=== PATIENT | male | born 1965 | race Caucasian/White ===

== ENCOUNTER 2024-09-29 18:17 | Inpatient (IN) ==
[2024-09-29 19:03] LABS: Basophils # (auto) 0.04 K/uL (0.00-0.20); Basophils % (auto) 0.6 %; Eosinophils # (auto) 0.16 K/uL (0.00-0.50); Eosinophils % (auto) 2.3 %; Hematocrit (blood only) 40.9 % (42.0-52.0); Immature Granulocytes # (auto) 0.02 K/uL (0.01-0.20); Immature Granulocytes % (auto) 0.3 %; Lymphocytes # (auto) 1.85 K/uL (1.20-3.40); Lymphocytes % (auto) 26.1 %; Mean Corpuscular Hemoglobin 29.5 pg (25.0-34.0); Mean Corpuscular Hgb Conc 34.2 g/dL (32.0-36.0); Mean Corpuscular Volume 86.3 fL (80.0-100.0); Mean Platelet Volume 9.3 fL (9.4-12.4); Monocytes # (auto) 0.51 K/uL (0.11-0.59); Monocytes % (auto) 7.2 %; Neutrophils # (auto) 4.51 K/uL (1.40-6.50); Neutrophils % (auto) 63.5 %; Platelet Count 260 K/uL (130-400); RDW Coefficient of Variation 12.6 % (11.5-14.5); RDW Standard Deviation 39.6 fL (36.4-46.3); Red Blood Count 4.74 M/uL (4.70-6.10); White Blood Count 7.09 K/ul (4.8-10.8)
[2024-09-29 19:21] LABS: Albumin Globulin Ratio 1.6 (0.9-2); Albumin Level 4.3 gm/dl (3.4-5.0); BUN Creatinine Ratio 18.2 (10-20); Bilirubin,Total 0.7 mg/dl (0.2-1.0); Calcium 9.3 mg/dl (8.6-10.3); Creatinine Clr Calc Pharmacy 121.9 ml/min; Globulin 2.7 gm/dl (2.5-4.0); Potassium 3.9 mmol/L (3.5-5.1)
[2024-09-29 19:28] LABS: Troponin I High Sensitivity 3.6 pg/ml (0-20)
[2024-09-29 19:34] LABS: Partial Thromboplastin Ratio 1.1; Partial Thromboplastin Time 29 Seconds (21-31); Prothrombin Time 10.7 Seconds (9.0-12.0)
--- NOTE | 2024-09-29 20:48 | XRay Report ---
Exam(s): XR CXR 1 VIEW EXAM: XR Chest, 1 View CLINICAL HISTORY: Reason for exam: Chest pain, nonspecific. TECHNIQUE: Frontal view of the chest. COMPARISON: CT scan from September 28, 2024 FINDINGS: Lungs: prominent interstitial markings centrally suggesting mild bronchitis. There is a trace amount of subsegmental atelectasis in the left lung base. The lungs are otherwise clear. Pleural space: Unremarkable. No pneumothorax. Heart: Unremarkable. No cardiomegaly. Mediastinum: Unremarkable. Normal mediastinal contour. Bones/joints: Unremarkable. No acute fracture. Upper abdomen: There is no pneumoperitoneum under the diaphragm. IMPRESSION: prominent interstitial markings centrally suggesting mild bronchitis. There is a trace amount of subsegmental atelectasis in the left lung base. The lungs are otherwise clear. Electronically signed by: Cuate Man MD 09/29/24 20:47 PM
--- NOTE | 2024-09-29 20:51 | Emergency Department Note ---
Impression & Plan Headache, Hypertension, DVT (deep venous thrombosis), Carotid artery thrombosis ED Provider Note NAME: GOVIND RICHMOND AGE: 59 SEX: M : 1965 ARRIVES VIA: Walk-In INFORMANT: [Patient] ED PROVIDER(S): [Robin Bartlett MD] CHIEF COMPLAINT: Headache HISTORY OF PRESENT ILLNESS: The patient is a 59-year-old male who states that he was recently, yesterday, diagnosed with a DVT in his right lower extremity, he was started on Eliquis. In addition, he has a subacute clot in the artery of the left neck--the left carotid bulb. This was also diagnosed yesterday. The patient was seen by his doctor's office and referred back to the ER for further workup and potential further imaging. The patient states that this morning, he woke up with a headache and some neck pain. The headache was primarily on the left and the neck pain was primarily on the left. He is short of breath but this is baseline. He has not had chest pain or abdominal pain or vomiting. He did notice that his right lower extremity was swollen, this is the same side they found the DVT. The patient states that in addition, his blood pressure has been high despite his typical BP meds. PMHx/PSHx/Social Hx: See Below PHYSICAL EXAM: GENERAL: Patient is in no acute distress. HEENT: No acute trauma, normocephalic atraumatic, mucous membranes moist, no nasal congestion. NECK: No stridor, no adenopathy, no meningismus, trachea is midline. LUNGS: Clear to auscultation bilaterally, no wheeze, no rhonchi, breath sounds equal. HEART: Without murmurs gallops or rubs, regular rate and rhythm. ABDOMEN: Soft, nontender, no peritonitis. EXTREMITIES: No cyanosis, full range of motion of all the joints without pain or difficulty. There is edema of the right lower extremity when compared to the left. NEUROLOGIC: Oriented x 3, no acute motor or sensory deficits, no focal weakness. SKIN: No jaundice, no diaphoresis. DIFFERENTIAL DIAGNOSIS: Uncontrolled hypertension, DVT, carotid thrombosis, intracranial bleeding, failed outpatient management, among others. EMERGENCY DEPARTMENT PROCEDURES: MEDICAL DECISION MAKING: There is no leukocytosis or concerning anemia. There is a normal platelet count. No coagulopathy. No renal failure or significant electrolyte abnormality. No concerning liver enzyme elevation. The patient appears to be in a euthyroid state. ECG shows a sinus bradycardia, no obvious ischemia. Cardiac enzyme testing x 1 is not consistent with acute cardiac injury. Respiratory bio fire did return positive for a type of coronavirus. Chest x-ray did not show pneumonia or CHF. Brain CT showed no acute bleed or mass effect. On exam, there were no focal neurologic findings. The patient was somewhat hypertensive. The patient received IV Zofran for nausea, IV hydralazine for hypertension. He was given IV Tylenol for his headache. The patient presents with a headache, hypertension. He was just found to have a left carotid thrombus and a right DVT. Given the circumstances, given his findings, I do think a hospital stay is warranted. I spoke with the patient and case management, the on-call hospitalist was consulted. Prior/Outside records/notes reviewed: Previous ED visit note describing his presentation, his findings and the outpatient plan. ECG per my interpretation: Indication was hypertension. The ECG shows a sinus rhythm with a rate of 64. There is LVH present. There is no acute ST elevation, no PVCs. The QTc is 379. Repeat ECG per my interpretation: Indication was chest pain. The ECG shows a sinus bradycardia with a rate of 58. There is LVH. No acute ST elevation, no PVCs. The QTc is 390. Continuous Cardiac Monitoring per my interpretation: An order was placed for continuous cardiac monitoring. The monitor shows a rate of 75 with normal sinus rhythm. Imaging/x-ray results per my interpretation: Chest x-ray does not show CHF or pneumonia. Chronic Medical/Social conditions affecting care: Eliquis use. Care/Management discussed with: Case management, the on-call hospitalist. Level of care consideration(s): After review of the information above and other included data: --I believe the patient requires escalation of care to admission DISPOSITION: Admission Past Med/Surg History Problem List (Updated 09/30/24 @ 12:54 by Robin Bartlett MD) Carotid artery thrombosis (Acute) DVT (deep venous thrombosis) (Acute) Hypertension (Acute) Headache (Acute) Chest pain Carotid artery thrombosis (Acute) DVT (deep venous thrombosis) (Acute) Deep vein thrombosis, lower right extremity Diabetes Left inguinal hernia Recurrent right inguinal hernia Inguinal hernia recurrent bilateral Statin intolerance Hypercholesterolemia Statin medication declined by patient Temporomandibular joint disorder GERD (gastroesophageal reflux disease) Esophageal stricture S/P EGD with dilitation Diabetes mellitus, type 2 Asthma DOES NOT USE INHALER (WAS PRESCRIBED ONE IN THE PAST) History of cardiac arrest self reported cardiac arrest with wrist surgery after reversal agents given for anesthesia. Medical History Hypertension Surgical History S/P hernia surgery (2019) [facility] repair Dr. Guzman Family history of reaction to anesthesia FATHER-INCREASED DEMENTIA History of anesthesia reaction Patient reports "cardiac arrest" with wrist surgery done (per his understanding) with general anesthesia. Had bruises on his chest post-op and was told "they had to use the paddles." He recalls signing paperwork because of these complications. He was told he arrested "when they reversed the anesthesia" to wake him back up. H/O awareness with sedation procedures. History of open reduction and internal fixation (ORIF) procedure RT WRIST History of esophagogastroduodenoscopy (EGD) History of tooth extraction History of endoscopic sinus surgery Family History Mother Family history of diabetes mellitus Grandfather (Maternal) Stroke Grandfather (Paternal) Stroke Father Hypertension Denies family history of Ovarian cancer Prostate cancer Myocardial infarction Breast cancer Colorectal cancer Cancer Social History Smoking Status: Never smoker Tobacco Type: Cigarettes Age Started Using Tobacco: 8; Age Quit Using Tobacco: 45; packs per day: 0.25; Second Hand Exposure: No; Do You Dip or Chew Tobacco: No; Hx Alcohol Use: No Hx Substance Use: No Preferred Language: German Communication Ability: Effective Visual Impairment: Limited Hearing Ability: Normal Licensing Coordinator Required: No Beliefs That Will Affect Care: None marital status: Current Living Situation: Spouse current occupational status: employed 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 How many Children do You have: 2 How many Children do You have Comment: 2 children- 2 steps Feels Safe at Home: Yes Childhood Exposure to Second-Hand Smoke: Yes (father) Diet: regular caffeine: Yes during the past year weight has: remained stable Dental Care, Regularly: Yes Physical Activity Frequency: Does not Exercise Seatbelt Use: always Sunscreen Use: No Assistive Devices: Glasses Allergies Allergies Allergy/AdvReac Type Severity Reaction Status Date / Time oxycodone [From Percocet] Allergy Intermediate ITCHING Verified 09/29/24 14:38 Home Meds Previous Rx's Medication Instructions Recorded triamcinolone acetonide 0.1 % 1 applic topical BID PRN itching 12/11/22 topical cream #80 grams blood sugar diagnostic #50 ea 12/30/23 glimepiride 4 mg tablet 4 mg PO QAM #90 tabs 12/30/23 lisinopril 10 mg tablet 10 mg PO QAM #90 tabs 12/30/23 metformin 1,000 mg tablet 500 mg (1/2 x 1,000 mg) PO BID #90 04/17/24 tabs sildenafil 50 mg tablet 50 mg PO DAILY PRN sexual activity 06/23/24 #14 tabs omeprazole 40 mg capsule,delayed 40 mg PO DAILY #90 caps 07/17/24 release semaglutide 14 mg tablet 14 mg PO DAILY 90 days #90 tabs 08/25/24 albuterol sulfate 90 mcg/actuation 2 puff inhalation Q6H PRN 09/28/24 aerosol inhaler shortness of breath or wheezing #18 grams doxycycline hyclate 100 mg tablet 100 mg PO BID 7 days #14 tabs 09/28/24 apixaban 5 mg tablet (Eliquis) 5 mg PO BID #60 tabs 09/29/24 empagliflozin 25 mg tablet 25 mg PO DAILY #90 tabs 09/29/24 ezetimibe 10 mg tablet 10 mg PO DAILY #90 tabs 09/29/24 Results & Data (ED) Vital Signs Vital Signs - 24 hr 09/29/24 18:29 09/29/24 20:15 09/29/24 20:16 Temperature 36.0 C L Temperature Source Temporal Artery Scan Pulse Rate 65 75 Pulse Rate [Apical] 66 Respiratory Rate 17 20 Respiratory Effort / Characteristics Respiratory Depth Blood Pressure 195/104 H Blood Pressure [Right Arm] 171/101 H Blood Pressure Mean 134 Blood Pressure Mean [Right Arm] 124 Pulse Oximetry 97 98 Oxygen Delivery Method Room Air Room Air Sepsis Recent Fever Within 48 Hours No Sepsis New/Unexplained Change in Mental Status N/A Sepsis Action Taken by Nursing No Action Required 09/29/24 20:56 09/29/24 21:06 09/29/24 21:39 Temperature Temperature Source Pulse Rate Pulse Rate [Apical] 58 L 58 L 64 Respiratory Rate 16 14 16 Respiratory Effort / Characteristics Non-Labored Spontaneous Non-Labored Spontaneous Respiratory Depth Normal Normal Blood Pressure Blood Pressure [Right Arm] 172/104 H 159/92 H 150/89 H Blood Pressure Mean Blood Pressure Mean [Right Arm] 126 114 109 Pulse Oximetry 96 97 96 Oxygen Delivery Method Room Air Room Air Room Air Sepsis Recent Fever Within 48 Hours Sepsis New/Unexplained Change in Mental Status Sepsis Action Taken by Nursing 09/29/24 22:15 Temperature Temperature Source Pulse Rate Pulse Rate [Apical] 68 Respiratory Rate 20 Respiratory Effort / Characteristics Non-Labored Spontaneous Respiratory Depth Normal Blood Pressure Blood Pressure [Right Arm] 151/85 H Blood Pressure Mean Blood Pressure Mean [Right Arm] 107 Pulse Oximetry 98 Oxygen Delivery Method Room Air Sepsis Recent Fever Within 48 Hours Sepsis New/Unexplained Change in Mental Status Sepsis Action Taken by Usp Medications Current Medication List: was personally reviewed by me Laboratory Data Attestation: I reviewed the patient's lab results. 09/29/24 18:51 09/30/24 07:29 Lab Results 09/29/24 Range/Units 18:51 WBC 7.09 (4.8-10.8) K/ul RBC 4.74 (4.70-6.10) M/uL Hgb 14.0 (14.0-18.0) g/dl Hct 40.9 L (42.0-52.0) % MCV 86.3 (80.0-100.0) fL MCH 29.5 (25.0-34.0) pg MCHC 34.2 (32.0-36.0) g/dL RDW Std Deviation 39.6 (36.4-46.3) fL RDW Coeff of Jacinto 12.6 (11.5-14.5) % Plt Count 260 (130-400) K/uL MPV 9.3 L (9.4-12.4) fL Immature Gran % (Auto) 0.3 % Neut % (Auto) 63.5 % Lymph % (Auto) 26.1 % Smyth % (Auto) 7.2 % Eos % (Auto) 2.3 % Baso % (Auto) 0.6 % Neut # (Auto) 4.51 (1.40-6.50) K/uL Lymph # (Auto) 1.85 (1.20-3.40) K/uL Smyth # (Auto) 0.51 (0.11-0.59) K/uL Eos # (Auto) 0.16 (0.00-0.50) K/uL Baso # (Auto) 0.04 (0.00-0.20) K/uL Immature Gran # (Auto) 0.02 (0.01-0.20) K/uL PT 10.7 (9.0-12.0) Seconds INR 1.0 (0.9-1.1) APTT 29 (21-31) Seconds PTT Ratio 1.1 Sodium 139 (136-145) mmol/L Potassium 3.9 (3.5-5.1) mmol/L Chloride 106 (98-107) mmol/L Carbon Dioxide 26 (21-32) mmol/L Anion Gap 7 (3-11) BUN 14 (6-23) mg/dl Creatinine 0.77 (0.6-1.4) mg/dl Est Cr Clr Drug Dosing 121.9 ml/min eGFR 102.49 BUN/Creatinine Ratio 18.2 (10-20) Glucose 119 H (70-99(Fasting)) mg/dl Calcium 9.3 (8.6-10.3) mg/dl Total Bilirubin 0.7 (0.2-1.0) mg/dl AST 15 (13-39) U/L ALT 17 (7-52) U/L Alkaline Phosphatase 99 (34-104) U/L Troponin I High Sens 3.6 (0-20) pg/ml Total Protein 7.0 (6.0-8.3) gm/dl Albumin 4.3 (3.4-5.0) gm/dl Globulin 2.7 (2.5-4.0) gm/dl Albumin/Globulin Ratio 1.6 (0.9-2) Administered Medications Acetaminophen (Acetaminophen 325 Mg Tab) 650 mg PO Q4H PRN PRN Reason: Pain or Fever Stop: 10/30/24 00:59 Last Admin: 09/30/24 04:30 Dose: 650 mg Documented By: PRANEETH Apixaban (Apixaban 5 Mg Tablet) 10 mg PO BID YEHUDA Stop: 10/05/24 21:01 Last Admin: 12/18/24 07:51 Dose: 10 mg Documented By: ALISSA Doxycycline Hyclate (Doxycycline Hyclate 100 Mg Cap) 100 mg PO BID [facility] Stop: 10/05/24 08:59 Last Admin: 09/30/24 07:50 Dose: 100 mg Documented By: ALISSA Ezetimibe (Ezetimibe 10 Mg Tab) 10 mg PO DAILY [facility] Stop: 10/30/24 08:59 Last Admin: 09/30/24 07:51 Dose: 10 mg Documented By: ALISSA Fluticasone Propionate (Fluticasone Propionate Na Spr 16 Gm Btl) 2 sprays NA DAILY [facility] Stop: 10/30/24 08:59 Last Admin: 09/30/24 07:51 Dose: 2 sprays Documented By: ALISSA Insulin Aspart (Insulin Aspart Per Unit Charge) 0 units SC ACHS [facility] Stop: 10/30/24 07:29 Last Admin: 09/30/24 09:04 Dose: 5 units Documented By: ALISSA Co-signed By: JEREMIAS Insulin Glargine (Lantus Per Unit Charge) 7 units SQ BID [facility] Stop: 10/30/24 08:59 Last Admin: 09/30/24 09:04 Dose: 7 units Documented By: ALISSA Co-signed By: JEREMIAS Lisinopril (Lisinopril 10 Mg Tab) 10 mg PO QAM [facility] Stop: 10/30/24 08:59 Last Admin: 09/30/24 07:51 Dose: 10 mg Documented By: ALISSA Ondansetron HCl (Ondansetron Inj 2 Mg/Ml 2 Ml Vial) 4 mg IV Q6H PRN PRN Reason: Nausea And Vomiting Stop: 10/30/24 00:59 Last Admin: 09/30/24 08:16 Dose: 4 mg Documented By: ALISSA Pantoprazole Sodium (Pantoprazole 40 Mg Tab) 40 mg PO DAILY [facility] Stop: 10/30/24 08:59 Last Admin: 09/30/24 07:51 Dose: 40 mg Documented By: ALISSA Discontinued Medications Hydrocodone Bitart/Acetaminophen (Hydrocodone/Acetaminophen 7.5/325mg Tab) 1 tab PO NOW STA Stop: 09/30/24 07:46 Last Admin: 09/30/24 07:51 Dose: 1 tab Documented By: ALISSA Hydralazine HCl (Hydralazine Hcl 20 Mg/Ml Vial) 5 mg IV NOW ONE Stop: 09/29/24 20:58 Last Admin: 09/29/24 21:07 Dose: 5 mg Documented By: KEENAN Acetaminophen (Ofirmev) 1,000 mg in 100 mls @ 400 mls/hr IV NOW STA Stop: 09/29/24 20:49 Last Infusion: 09/29/24 23:14 Dose: Infused Documented By: Admin: 09/29/24 20:59 Dose: 400 mls/hr Documented By: KEENAN Labetalol HCl (Labetalol Hcl Iv 5 Mg/Ml 20ml) 10 mg IV NOW STA Stop: 09/29/24 20:36 Last Admin: 09/29/24 21:07 Dose: Not Given Documented By: KEENAN Ondansetron HCl (Ondansetron Inj 2 Mg/Ml 2 Ml Vial) 4 mg IV NOW STA Stop: 09/29/24 20:36 Last Admin: 09/29/24 20:54 Dose: 4 mg Documented By: KEENAN Imaging Data Radiologist's Impression: Chest X-Ray 09/29/24 18:34 Exam(s): XR CXR 1 VIEW EXAM: XR Chest, 1 View CLINICAL HISTORY: Reason for exam: Chest pain, nonspecific. TECHNIQUE: Frontal view of the chest. COMPARISON: CT scan from September 28, 2024 FINDINGS: Lungs: prominent interstitial markings centrally suggesting mild bronchitis. There is a trace amount of subsegmental atelectasis in the left lung base. The lungs are otherwise clear. Pleural space: Unremarkable. No pneumothorax. Heart: Unremarkable. No cardiomegaly. Mediastinum: Unremarkable. Normal mediastinal contour. Bones/joints: Unremarkable. No acute fracture. Upper abdomen: There is no pneumoperitoneum under the diaphragm. IMPRESSION: prominent interstitial markings centrally suggesting mild bronchitis. There is a trace amount of subsegmental atelectasis in the left lung base. The lungs are otherwise clear. Electronically signed by: Cuate Man MD 09/29/24 20:47 PM Discharge Plan Visit Data Chief Complaint: Headache Stated Complaint: DIZZY, HEADACHE, HIGH BP ED Provider: Robin Bartlett Discharge Problem: Headache, Hypertension, DVT (deep venous thrombosis), Carotid artery thrombosis Patient Disposition: Admitted As Inpatient Condition: Fair Discharge Instructions Interventions: ED Discharge Assessment Last Done: 09/30/24 00:33 Discharge Problem: Headache Qualifiers: Headache type: unspecified Headache chronicity pattern: acute headache I ntractability: not intractable Qualified Code(s): R51.9 - Headache, unspecified Hypertension Qualifiers: Hypertension type: unspecified Qualified Code(s): I10 - Essential (primary) hypertension DVT (deep venous thrombosis) Qualifiers: DVT location: lower extremity Affected thrombotic vein of extremity: u nspecified vein of extremity Chronicity: acute Laterality: right Qualified Code(s): I82.401 - Acute embolism and thrombosis of unspecified deep veins of right lower extremity Carotid artery thrombosis Qualifiers: Laterality: left Qualified Code(s): I65.22 - Occlusion and stenosis of left carotid artery
[2024-09-29] MEDS: ONDANSETRON INJ 2 MG/ML 2 ML VIAL IV STA (20:54)
[2024-09-29] MEDS: ACETAMINOPHEN 1,000 MG/100 ML VIAL IV STA (20:59)
[2024-09-29] MEDS: LABETALOL HCL IV 5 MG/ML 20ML IV STA (21:07)
[2024-09-29] MEDS: hydrALAZINE HCL 20 MG/ML VIAL IV ONE (21:07)
--- NOTE | 2024-09-29 22:04 | CT Scan Report ---
Exam(s): CT HEAD Without Contrast EXAM: CT Head Without Intravenous Contrast CLINICAL HISTORY: Reason for exam: headache on Eliquis. TECHNIQUE: Axial computed tomography images of the head/brain without intravenous contrast. CTDI is 37.69 mGy and DLP is 624.41 mGy-cm. Automated exposure control was utilized for the study. A dose lowering technique was utilized adhering to the principles of ALARA. COMPARISON: No relevant prior studies available. FINDINGS: Brain: Unremarkable appearance of the brain. No acute large vessel infarct or intracranial hemorrhage is identified. Ventricles: Unremarkable. No ventriculomegaly. Bones/joints: Unremarkable. No acute fracture. Soft tissues: Unremarkable. Sinuses: Partial visualization of small amount of mucosal thickening in the left maxillary sinus. Probable previous sinus surgery. No acute gas/fluid levels are identified. Mastoid air cells: Unremarkable as visualized. No mastoid effusion. IMPRESSION: Unremarkable appearance of the brain. No acute large vessel infarct or intracranial hemorrhage is identified. Electronically signed by: Cuate Man MD 09/29/24 22:03 PM
--- NOTE | 2024-09-29 22:59 | History & Physical Report ---
Date of Service September 29, 2024 Assessment & Plan (1) Carotid artery thrombosis: Plan: Noted on imaging obtained yesterday. Age indeterminant. Patient with FINN and left sided neck pain. No neurologic complaints. -Continue Eliquis 10mg po BID x 7 days followed by 5mg po BID -Check 2D echocardiogram with bubble study to assess for PFO, possible explanation for RLE VTE + L carotid VTE -Neuro checks/Stroke evaluation q 4 hours -Tylenol PRN pain -Due to presence of arterial clot, if no PFO is present patient may benefit from hypercoagulability workup to be pursued outpatient -Patient's case has been discussed with Vascular surgery during his hospital visit yesterday. He should schedule outpatient followup with Vascular Surgery (2) DVT (deep venous thrombosis): Plan: Noted. Patient does recall a minor injury to the right ankle preceding the edema. Likely provoked VTE? He has no personal or family history of VTE. He is not up to date with his age appropriate cancer screenings and this should be encouraged on an outpatient basis. -Continue Eliquis -Compression stockings as tolerated (3) Hypertension: Plan: Patient with elevated blood pressure increased from baseline -Continue Lisinopril 10mg po qAM -Monitor (4) Chest pain: Plan: Patient with intermittent chest discomfort. EKG with no ischemic changes. Troponin is unremarkable -Repeat troponin in AM (5) Diabetes: Plan: Patient on oral agents. Last JriS0V=3.8 on 08/21/24 -Hold oral agents -Lantus 7u BID -ISS -Goal blood sugar 110 - 140 (6) Hypercholesterolemia: Plan: Chronic. Stable -Continue Zetia 10mg po daily (7) GERD (gastroesophageal reflux disease): Plan: Chronic. -Protonix 40mg po daily History of Present Illness Chief Complaint: headache Primary Care Provider: CAMRON Warner Hai Evans is a 59yo male with history of DM, HTN, HLP and GERD presenting for additional workup. Mr. Evans twisted his right ankle approximately one month ago. He reports that the ankle and leg became swollen. He was seen by his PCP yesterday for this complaint - RLE edema as well as some wheezing. He had an outpatient RLE venous doppler performed which revealed an age indeterminate DVT in te right popliteal vein. He was started on Eliquis (10mg po BID x 7d then 5mg po BID) by his PCP. He was then sent to the ER to obtain a CTA chest given the presence of wheezing. ER workup included unremarkable CTA chest and CTA head. CTA of the neck did reveal a partial thrombosis at the left carotid bulb with 40-45% luminal narrowing at the carotid bulb - appears to be subacute in nature. The case was discussed with Vascular Surgery at the time of the ER visit and patient was ultimately discharged home with instruction to continue his Eliquis as prescribed and to followup with Vascular Surgery outpatient. Patient returned home.. Today he had elevated blood pressure of 175/111 as well as some dizziness, left sided headache and pain in the left side of the neck and face. He reports that he was having some of these symptoms yesterday and they are fairly stable. He has also been having intermittent left sided chest discomfort today as well as intermittent nausea. He denies visual changes, focal numbness/tingling or weakness. He was seen again by PCP today in followup and they discussed with Dr. Barrera's office and it was suggested that he return to the ER for additional workup. 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 He is not up to date with his age appropriate cancer screening - no prior Colonoscopy. No prior PSA evaluation. He has a known hernia and is scheduled for a CT scan of the abdomen for further evaluation. Reports passing gas. Had normal BM earlier today. In the ER patient is hypertensive, otherwise HD stable. No additional complaints Allergies Allergy/AdvReac Type Severity Reaction Status Date / Time oxycodone [From Percocet] Allergy Intermediate ITCHING Verified 09/29/24 14:38 Home Medications Medication Instructions Recorded Confirmed Type triamcinolone acetonide 0.1 % 1 applic topical BID PRN itching 12/11/22 09/29/24 Rx topical cream #80 grams blood sugar diagnostic #50 ea 12/30/23 09/28/24 Rx glimepiride 4 mg tablet 4 mg PO QAM #90 tabs 12/30/23 09/29/24 Rx lisinopril 10 mg tablet 10 mg PO QAM #90 tabs 12/30/23 09/29/24 Rx metformin 1,000 mg tablet 500 mg (1/2 x 1,000 mg) PO BID #90 04/17/24 09/29/24 Rx tabs sildenafil 50 mg tablet 50 mg PO DAILY PRN sexual activity 06/23/24 09/29/24 Rx #14 tabs omeprazole 40 mg capsule,delayed 40 mg PO DAILY #90 caps 07/17/24 09/29/24 Rx release semaglutide 14 mg tablet 14 mg PO DAILY 90 days #90 tabs 08/25/24 09/29/24 Rx albuterol sulfate 90 mcg/actuation 2 puff inhalation Q6H PRN 09/28/24 09/29/24 Rx aerosol inhaler shortness of breath or wheezing #18 grams doxycycline hyclate 100 mg tablet 100 mg PO BID 7 days #14 tabs 09/28/24 09/29/24 Rx apixaban 5 mg tablet (Eliquis) 5 mg PO BID #60 tabs 09/29/24 09/29/24 Rx empagliflozin 25 mg tablet 25 mg PO DAILY #90 tabs 09/29/24 09/29/24 Rx ezetimibe 10 mg tablet 10 mg PO DAILY #90 tabs 09/29/24 09/29/24 Rx Past Med/Surg History Problem List (Updated 09/30/24 @ 00:10 by Janine Man DO) Chest pain Carotid artery thrombosis (Acute) DVT (deep venous thrombosis) (Acute) Deep vein thrombosis, lower right extremity Diabetes Left inguinal hernia Recurrent right inguinal hernia Inguinal hernia recurrent bilateral Statin intolerance Hypercholesterolemia Statin medication declined by patient Temporomandibular joint disorder Hypertension GERD (gastroesophageal reflux disease) Esophageal stricture S/P EGD with dilitation Diabetes mellitus, type 2 Asthma DOES NOT USE INHALER (WAS PRESCRIBED ONE IN THE PAST) History of cardiac arrest self reported cardiac arrest with wrist surgery after reversal agents given for anesthesia. Surgical History S/P hernia surgery (2019) [facility] repair Dr. Guzman Family history of reaction to anesthesia FATHER-INCREASED DEMENTIA History of anesthesia reaction Patient reports "cardiac arrest" with wrist surgery done (per his understanding) with general anesthesia. Had bruises on his chest post-op and was told "they had to use the paddles." He recalls signing paperwork because of these complications. He was told he arrested "when they reversed the anesthesia" to wake him back up. H/O awareness with sedation procedures. History of open reduction and internal fixation (ORIF) procedure RT WRIST History of esophagogastroduodenoscopy (EGD) History of tooth extraction History of endoscopic sinus surgery Family History Mother Family history of diabetes mellitus Grandfather (Maternal) Stroke Grandfather (Paternal) Stroke Father Hypertension Denies family history of Ovarian cancer Prostate cancer Myocardial infarction Breast cancer Colorectal cancer Cancer Social History Smoking Status: Never smoker Tobacco Type: Cigarettes Age Started Using Tobacco: 8; Age Quit Using Tobacco: 45; packs per day: 0.25; Second Hand Exposure: No; Do You Dip or Chew Tobacco: No; Hx Alcohol Use: No Hx Substance Use: No Preferred Language: Serbian Communication Ability: Effective Visual Impairment: Limited Hearing Ability: Normal Fast Food Cashier Required: No Beliefs That Will Affect Care: None marital status: Current Living Situation: Spouse current occupational status: employed 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 How many Children do You have: 2 How many Children do You have Comment: 2 children- 2 steps Feels Safe at Home: Yes Childhood Exposure to Second-Hand Smoke: Yes (father) Diet: regular caffeine: Yes during the past year weight has: remained stable Dental Care, Regularly: Yes Physical Activity Frequency: Does not Exercise Seatbelt Use: always Sunscreen Use: No Assistive Devices: Glasses Review of Systems Review of Systems: All systems reviewed & are unremarkable except as noted in HPI & below Physical Exam Physical Exam: General: patient resting comfortably, NAD, non-toxic in appearance, AA&O x 4 Skin: warm, dry, intact, no rashes or lesions HEENT: NC/AT, PERRL, EOMI, anicteric sclera, conjunctiva without injection, external ear normal to inspection and nontender, nares patent, moist mucus membranes, dentition intact, no oropharyngeal lesions, neck supple, trachea midline, no LAD, no thyromegaly, no JVD, some left facial tenderness, tenderness of left neck. Limited bedside ophthalmoscopic exam with no evidence of papilledema Heart: +S1/S2, regular, no m/r/g Lungs: equal air entry bilaterally, no rales/rhonchi/wheezes Abd: +BS, soft, NT/ND, no masses/organomegaly/ascites Ext: warm, 2+ pulses in UE/LE bilaterally, no clubbing/cyanosis, warmth/redness/tenderness and edema of RLE Neuro: nonfocal, patient AA&O x 4, speech intact, no facial droop, moving all extremities on command with equal strength 5/5 Results & Data Results & Data Vital Signs (Past 12 Hours) Vital Signs Temp Pulse Pulse Resp BP BP Pulse Ox 09/29/24 22:15 68 20 151/85 H 98 09/29/24 21:39 64 16 150/89 H 96 09/29/24 21:06 58 L 14 159/92 H 97 09/29/24 20:56 58 L 16 172/104 H 96 09/29/24 20:16 75 09/29/24 20:15 66 20 171/101 H 98 09/29/24 18:29 36.0 C L 65 17 195/104 H 97 O2 Del Method 09/29/24 22:15 Room Air 09/29/24 21:39 Room Air 09/29/24 21:06 Room Air 09/29/24 20:56 Room Air 09/29/24 20:16 09/29/24 20:15 Room Air 09/29/24 18:29 Room Air Laboratory Results Laboratory Results WBC 7.09 K/ul (4.8-10.8) 09/29/24 18:51 RBC 4.74 M/uL (4.70-6.10) 09/29/24 18:51 Hgb 14.0 g/dl (14.0-18.0) 09/29/24 18:51 Hct 40.9 % (42.0-52.0) L 09/29/24 18:51 MCV 86.3 fL (80.0-100.0) 09/29/24 18:51 MCH 29.5 pg (25.0-34.0) 09/29/24 18:51 MCHC 34.2 g/dL (32.0-36.0) 09/29/24 18:51 RDW Std Deviation 39.6 fL (36.4-46.3) 09/29/24 18:51 RDW Coeff of Jacinto 12.6 % (11.5-14.5) 09/29/24 18:51 Plt Count 260 K/uL (130-400) 09/29/24 18:51 MPV 9.3 fL (9.4-12.4) L 09/29/24 18:51 Immature Gran % (Auto) 0.3 % 09/29/24 18:51 Neut % (Auto) 63.5 % 09/29/24 18:51 Lymph % (Auto) 26.1 % 09/29/24 18:51 [place] % (Auto) 7.2 % 09/29/24 18:51 Eos % (Auto) 2.3 % 09/29/24 18:51 Baso % (Auto) 0.6 % 09/29/24 18:51 Neut # (Auto) 4.51 K/uL (1.40-6.50) 09/29/24 18:51 Lymph # (Auto) 1.85 K/uL (1.20-3.40) 09/29/24 18:51 [place] # (Auto) 0.51 K/uL (0.11-0.59) 09/29/24 18:51 Eos # (Auto) 0.16 K/uL (0.00-0.50) 09/29/24 18:51 Baso # (Auto) 0.04 K/uL (0.00-0.20) 09/29/24 18:51 Immature Gran # (Auto) 0.02 K/uL (0.01-0.20) 09/29/24 18:51 PT 10.7 Seconds (9.0-12.0) 09/29/24 18:51 INR 1.0 (0.9-1.1) 09/29/24 18:51 APTT 29 Seconds (21-31) 09/29/24 18:51 PTT Ratio 1.1 09/29/24 18:51 Sodium 139 mmol/L (136-145) 09/29/24 18:51 Potassium 3.9 mmol/L (3.5-5.1) 09/29/24 18:51 Chloride 106 mmol/L (98-107) 09/29/24 18:51 Carbon Dioxide 26 mmol/L (21-32) 09/29/24 18:51 Anion Gap 7 (3-11) 09/29/24 18:51 BUN 14 mg/dl (6-23) 09/29/24 18:51 Creatinine 0.77 mg/dl (0.6-1.4) 09/29/24 18:51 Est Cr Clr Drug Dosing 121.9 ml/min 09/29/24 18:51 eGFR 102.49 09/29/24 18:51 BUN/Creatinine Ratio 18.2 (10-20) 09/29/24 18:51 Glucose 119 mg/dl (70-99(Fasting)) H 09/29/24 18:51 Calcium 9.3 mg/dl (8.6-10.3) 09/29/24 18:51 Total Bilirubin 0.7 mg/dl (0.2-1.0) 09/29/24 18:51 AST 15 U/L (13-39) 09/29/24 18:51 ALT 17 U/L (7-52) 09/29/24 18:51 Alkaline Phosphatase 99 U/L (34-104) 09/29/24 18:51 Troponin I High Sens 3.6 pg/ml (0-20) 09/29/24 18:51 Total Protein 7.0 gm/dl (6.0-8.3) 09/29/24 18:51 Albumin 4.3 gm/dl (3.4-5.0) 09/29/24 18:51 Globulin 2.7 gm/dl (2.5-4.0) 09/29/24 18:51 Albumin/Globulin Ratio 1.6 (0.9-2) 09/29/24 18:51 Impressions Chest X-Ray 09/29/24 18:34 Exam(s): XR CXR 1 VIEW EXAM: XR Chest, 1 View CLINICAL HISTORY: Reason for exam: Chest pain, nonspecific. TECHNIQUE: Frontal view of the chest. COMPARISON: CT scan from September 28, 2024 FINDINGS: Lungs: prominent interstitial markings centrally suggesting mild bronchitis. There is a trace amount of subsegmental atelectasis in the left lung base. The lungs are otherwise clear. Pleural space: Unremarkable. No pneumothorax. Heart: Unremarkable. No cardiomegaly. Mediastinum: Unremarkable. Normal mediastinal contour. Bones/joints: Unremarkable. No acute fracture. Upper abdomen: There is no pneumoperitoneum under the diaphragm. IMPRESSION: prominent interstitial markings centrally suggesting mild bronchitis. There is a trace amount of subsegmental atelectasis in the left lung base. The lungs are otherwise clear. Electronically signed by: Cuate Man MD 09/29/24 20:[address] 09/29/24 20:35 Exam(s): CT HEAD Without Contrast EXAM: CT Head Without Intravenous Contrast CLINICAL HISTORY: Reason for exam: headache on Eliquis. TECHNIQUE: Axial computed tomography images of the head/brain without intravenous contrast. CTDI is 37.69 mGy and DLP is 624.41 mGy-cm. Automated exposure control was utilized for the study. A dose lowering technique was utilized adhering to the principles of ALARA. COMPARISON: No relevant prior studies available. FINDINGS: Brain: Unremarkable appearance of the brain. No acute large vessel infarct or intracranial hemorrhage is identified. Ventricles: Unremarkable. No ventriculomegaly. Bones/joints: Unremarkable. No acute fracture. Soft tissues: Unremarkable. Sinuses: Partial visualization of small amount of mucosal thickening in the left maxillary sinus. Probable previous sinus surgery. No acute gas/fluid levels are identified. Mastoid air cells: Unremarkable as visualized. No mastoid effusion. IMPRESSION: Unremarkable appearance of the brain. No acute large vessel infarct or intracranial hemorrhage is identified. Electronically signed by: Cuate Man MD 09/29/24 22:03 PM Code Status & VTE Plan VTE Prophylaxis Plan VTE Prophylaxis will be ordered: Yes PG Care Time/CCT Total # of Minutes Spent Total Time Spent with Patient: Total time spent is greater than 50% in coordination of care (as documented) at patient's floor/unit and/or counseling patient: Coding Level of Care Code 07277 INT INP/OBS CARE 3/75MIN Diagnoses Carotid artery thrombosis I65.22 Laterality: left DVT (deep venous thrombosis) I82.431 Affected thrombotic vein of extremity: popliteal Chronicity: acute DVT location: lower extremity Laterality: right Hypertension I10 Chest pain R07.9 Diabetes E11.9 Hypercholesterolemia E78.00 GERD (gastroesophageal reflux disease) K21.9 (1) Carotid artery thrombosis Laterality: left Qualified Code(s): I65.22 - Occlusion and stenosis of left carotid artery (2) DVT (deep venous thrombosis) Affected thrombotic vein of extremity: popliteal Chronicity: acute DVT location: lower extremity Laterality: right Qualified Code(s): I82.431 - Acute embolism and thrombosis of right popliteal vein
[2024-09-30] MEDS ORDERED: GLUCOSE 10 TAB/TUBE PO PRN (01:00)
[2024-09-30] MEDS ORDERED: GLUCAGON FOR INJ 1 MG VIAL SQ PRN (01:00)
[2024-09-30] MEDS ORDERED: DEXTROSE 50% 50 ML SYRINGE IV PRN (01:00)
[2024-09-30] MEDS ORDERED: GLUCOSE 40% GEL 15 GM TUBE PO PRN (01:00)
[2024-09-30] MEDS ORDERED: CARBOHYDRATES FOR HYPOGLYCEMIA PO PRN (01:00)
[2024-09-30] MEDS ORDERED: ALBUTEROL HFA 8 GM INHALER INH PRN (01:00)
[2024-09-30] MEDS ORDERED: SODIUM CHLORIDE 0.65% NA SOLN 45 ML (OCEAN) PRN (01:00)
[2024-09-30] MEDS: ACETAMINOPHEN 325 MG TAB PO PRN (04:30)
[2024-09-30] MEDS: DOXYCYCLINE HYCLATE 100 MG CAP PO SCH (07:50)
[2024-09-30] MEDS: HYDROCODONE/ACETAMINOPHEN 7.5/325MG TAB PO STA (07:51)
[2024-09-30] MEDS: EZETIMIBE 10 MG TAB PO SCH (07:51)
[2024-09-30] MEDS: lisinopril 10 MG TAB PO SCH (07:51)
[2024-09-30] MEDS: PANTOprazole 40 MG TAB PO SCH (07:51)
[2024-09-30] MEDS: FLUTICASONE PROPIONATE NA SPR 16 GM BTL SCH (07:51)
[2024-09-30] MEDS: APIXABAN 5 MG TABLET PO SCH (07:51)
[2024-09-30 08:09] LABS: Creatinine Clr Calc Pharmacy 121.9 ml/min
[2024-09-30 08:16] LABS: Troponin I High Sensitivity 3.3 pg/ml (0-20)
[2024-09-30] MEDS: ONDANSETRON INJ 2 MG/ML 2 ML VIAL IV PRN (08:16)
[2024-09-30 08:25] LABS: Thyroid Stimulating Hormone 2.159 uIu/ml (0.300-4.500)
[2024-09-30] MEDS: LANTUS PER UNIT CHARGE SQ SCH (09:04)
[2024-09-30] MEDS: INSULIN ASPART PER UNIT CHARGE SC SCH (09:04)
[2024-09-30 09:42] LABS: Adenovirus PCR Not Detected (NotDetected); Bordetella parapertussis PCR Not Detected (NotDetected); Bordetella pertussis PCR Not Detected (NotDetected); Chlamydia pneumoniae PCR Not Detected (NotDetected); Coronavirus 229E PCR Not Detected (NotDetected); Coronavirus CoV-2 (COVID19)PCR Not Detected (NotDetected); Coronavirus HKU1 PCR Not Detected (NotDetected); Coronavirus NL63 PCR Not Detected (NotDetected); Coronavirus OC43PCR DETECTED (NotDetected); Human Metapneumovirus PCR Not Detected (NotDetected); Influenza A PCR Not Detected (NotDetected); Influenza B PCR Not Detected (NotDetected); Mycoplasma pneumoniae PCR Not Detected (NotDetected); Parainfluenza Virus 1 PCR Not Detected (NotDetected); Parainfluenza Virus 2 PCR Not Detected (NotDetected); Parainfluenza Virus 3 PCR Not Detected (NotDetected); Parainfluenza Virus 4 PCR Not Detected (NotDetected); Respiratory Syncytial VirusPCR Not Detected (NotDetected); Rhinovirus/Enterovirus PCR Not Detected (NotDetected)
--- NOTE | 2024-09-30 15:53 | XCELERA ---
[id number]
--- NOTE | 2024-09-30 17:55 | Hospitalist Progress Note ---
Date of Service September 30, 2024 Assessment & Plan (1) Sinusitis: Plan: patient with significant sinus disease on imaging of the left maxillary sinus & the left ethmoid sinus he has had previous sinus surgery imaging findings likely to be mostly chronic, but can't rule out an element of acute worsening - especially in light of coronavirus infection some of his headache symptoms could be from the sinus disease as well as acute illness w/ coronavirus will treat for sinusitis x 10 days change doxy to augmentin 875mg BID plan MRV brain to r/o thrombosis of the sinuses plan MRI brain - r/o stroke, etc. would benefit from referral to ENT to manage his sinus disease (2) Coronavirus infection: Plan: resp biofire + for non-COVID coronavirus suspect this virus explains many of his URI symptoms, recent wheezing/chest symptoms, etc. no specific Rx needed patient made aware of this virus (3) Headache: Plan: partially due to #1 partially due to #2 can't exclude the subacute thrombosis of the left carotid contributing? gave oxycodone with relief treat the sinus disease f/u tomorrow MRI Brain, MRV head ordered r/o stroke, sinus thrombosis, etc. (4) Carotid artery thrombosis: Plan: left he will be on DVT treatment with Eliquis 10mg BID x 7 days then 5mg BID thereafter exact etiology uncertain echo without ASD; could not rule out PFO homocysteine level sent will need vascular surgery f/u post-discharge will also send to heme/onc (5) DVT (deep venous thrombosis): Plan: s/p minor injury to the right ankle preceding the edema. Injury was 3-4 weeks ago. Provoked RLE DVT?? plan at least 3 months of Rx with Eliquis (10mg BID x 1 week then 5mg BID thereafter). (6) Hypertension: Plan: Continue Lisinopril 10mg po qAM Treat his headache & pain Follow (7) Chest pain: Plan: Echo w/o WMA abnormalities and with normal EF troponins negative Suspect chest discomfort/tightness is due to bronchitis from the coronavirus infection unlikely to be ischemic in etiology (8) Diabetes: Plan: Patient on oral agents at baseline. Last OlxC6X=4.8 on 08/21/24 -Hold oral agents -Lantus 7u BID -Novolog SSI (9) Hypercholesterolemia: Plan: Check lipids am Continue Zetia 10mg po daily (10) GERD (gastroesophageal reflux disease): Plan: Protonix 40mg po daily Plan change observation status to full admission status if MRI brain/MRV head are negative and he is feeling ok tomorrow can likely d/c home then Admission and Anticipated Discharge Date Admission Date: September 30, 2024 Subjective patient reports URI symptoms, cough, wheezing, etc for a few weeks has had chest tightness/discomfort at times as well has chronic sinus issues "for long time" reports his headache he had this am is improved headaches came on suddenly in the last 48 hours feels congested in his sinuses "I feel like I am always sick" denies RLE pain today tele overnight wnl Review of Systems Review of Systems: gen - no fevers or chills; eating ok cv - no chest pain this am pulm - no significant sputum GI - no N/V today Physical Exam Physical Exam: gen - NAD, lying comfortably in bed neck - no bruits, no JVD, no lymph nodes head - no sinus tenderness to palpation any sinus; no overlying abnormalities of sinuses heart - RRR, s1 s2, no murmur lungs - CTA b/l, no wheeze or rales abd - soft NT ND BS+ ext - <1+ edema RLE, no edema on left, pulses 2+ b/l feet Results & Data Results & Data Vital Signs (Past 12 Hours) Vital Signs Temp Pulse Pulse Resp BP Pulse Ox O2 Del Method 09/30/24 15:28 36.7 C 64 18 158/89 H 96 Room Air 09/30/24 13:57 76 09/30/24 11:21 36.6 C 64 18 164/88 H 95 Room Air 09/30/24 07:23 36.8 C 64 18 167/92 H 96 Room Air 09/30/24 07:02 68 Laboratory Results Laboratory Results - last 24 hr 09/30/24 09/30/24 09/30/24 07:29 09:00 12:05 Creatinine 0.77 Est Cr Clr Drug Dosing 121.9 eGFR 102.49 POC Glucose 190 H 114 H Troponin I High Sens 3.3 Homocysteine Pending TSH 2.159 Adenovirus (PCR) B. pertussis DNA (PCR) B.parapertussis DNA PCR C. pneumoniae DNA (PCR) Coronavirus OC43 (PCR) Coronavirus HKU1 (PCR) Coronavirus 229E (PCR) SARS-CoV-2 (PCR) Coronavirus NL63 (PCR) Human Metapneumovir PCR Influenza Type A (PCR) Influenza Type B (PCR) M. pneumoniae (PCR) Parainfluenza 1 (PCR) Parainfluenza 2 (PCR) Parainfluenza 3 (PCR) Parainfluenza 4 (PCR) RSV (PCR) Entero/Rhino (PCR) 09/30/24 09/30/24 09/30/24 17:22 20:02 Unknown Creatinine Est Cr Clr Drug Dosing eGFR POC Glucose 102 H 137 H Troponin I High Sens Homocysteine TSH Adenovirus (PCR) Not Detected B. pertussis DNA (PCR) Not Detected B.parapertussis DNA PCR Not Detected C. pneumoniae DNA (PCR) Not Detected Coronavirus OC43 (PCR) DETECTED A Coronavirus HKU1 (PCR) Not Detected Coronavirus 229E (PCR) Not Detected SARS-CoV-2 (PCR) Not Detected Coronavirus NL63 (PCR) Not Detected Human Metapneumovir PCR Not Detected Influenza Type A (PCR) Not Detected Influenza Type B (PCR) Not Detected M. pneumoniae (PCR) Not Detected Parainfluenza 1 (PCR) Not Detected Parainfluenza 2 (PCR) Not Detected Parainfluenza 3 (PCR) Not Detected Parainfluenza 4 (PCR) Not Detected RSV (PCR) Not Detected Entero/Rhino (PCR) Not Detected PG Care Time/CCT Total # of Minutes Spent Total Time Spent with Patient: Total time spent is greater than 50% in coordination of care (as documented) at patient's floor/unit and/or counseling patient: Coding Level of Care Code 23753 SUB INP/OBS CARE 3/50MIN Diagnoses Sinusitis J32.9 Coronavirus infection B34.2 Headache R51.9 Headache chronicity pattern: acute headache Headache type: unspecified Intractability: not intractable Carotid artery thrombosis I65.22 Laterality: left DVT (deep venous thrombosis) I82.431 Affected thrombotic vein of extremity: popliteal Chronicity: acute DVT location: lower extremity Laterality: right Hypertension I10 Chest pain R07.9 Diabetes E11.9 Hypercholesterolemia E78.00 GERD (gastroesophageal reflux disease) K21.9 (3) Headache Headache chronicity pattern: acute headache Headache type: unspecified Intractability: not intractable Qualified Code(s): R51.9 - Headache, unspecified (4) Carotid artery thrombosis Laterality: left Qualified Code(s): I65.22 - Occlusion and stenosis of left carotid artery (5) DVT (deep venous thrombosis) Affected thrombotic vein of extremity: popliteal Chronicity: acute DVT location: lower extremity Laterality: right Qualified Code(s): I82.431 - Acute embolism and thrombosis of right popliteal vein
[2024-09-30] MEDS: AMOXICILLIN/CLAVULANATE 875 MG TAB PO SCH (18:44)
--- NOTE | 2024-09-30 21:32 | Electrocardiogram Report ---
Test Reason : Blood Pressure : */* mmHG Vent. Rate : 58 BPM Atrial Rate : 58 BPM P-R Int : 156 ms QRS Dur : 86 ms QT Int : 398 ms P-R-T Axes : -4 -2 16 degrees QTcB Int : 390 ms Sinus bradycardia Minimal voltage criteria for LVH, may be normal variant ( R in aVL ) Borderline ECG When compared with ECG of 29-Sep-2024 18:45, No significant change was found Confirmed by Vincenzo Mera ([id number]) on 09/30/2024 9:32:20 PM Referred By: Jeff Lindsey Confirmed By: Vincenzo Mera
--- NOTE | 2024-09-30 21:32 | Electrocardiogram Report ---
Test Reason : Blood Pressure : */* mmHG Vent. Rate : 64 BPM Atrial Rate : 64 BPM P-R Int : 146 ms QRS Dur : 92 ms QT Int : 368 ms P-R-T Axes : 9 -2 25 degrees QTcB Int : 379 ms Normal sinus rhythm Minimal voltage criteria for LVH, may be normal variant ( R in aVL ) Borderline ECG When compared with ECG of 28-Sep-2024 17:37, No significant change was found Confirmed by Vincenzo Mera ([id number]) on 09/30/2024 9:32:06 PM Referred By: Jeff Lindsey Confirmed By: Vincenzo Mera
--- NOTE | 2024-10-01 01:27 | Magnetic Resonance Report ---
Exam(s): MRV HEAD EXAM: MR Venography Head Without Intravenous Contrast CLINICAL HISTORY: Reason for exam: DVT RLE, carotid thrombus; r/o sinus thrombosis. TECHNIQUE: Magnetic resonance venography images of the head without intravenous contrast. MIP reconstructed images were created and reviewed. COMPARISON: Prior CT angiogram of the head from September 28, 2024. FINDINGS: Superior sagittal sinus: Unremarkable. Patent. Straight sinus: Unremarkable. Patent. Transverse sinuses: Unremarkable. Patent. Sigmoid sinuses: Unremarkable. Patent. Internal jugular veins: Unremarkable as visualized. Internal cerebral and cortical veins: Unremarkable as visualized. IMPRESSION: Negative MRV of the brain. Electronically signed by: Diana Breen MD 10/01/24 01:26 AM
--- NOTE | 2024-10-01 01:52 | Magnetic Resonance Report ---
Exam(s): MRI HEAD Without Contrast EXAM: MR Head Without Intravenous Contrast CLINICAL HISTORY: Reason for exam: dizziness, carotid disease, DVT; eval CVA. TECHNIQUE: Magnetic resonance images of the head/brain without intravenous contrast in multiple planes. COMPARISON: Prior head CT from September 29, 2024. FINDINGS: Brain: Mild nonspecific white matter changes. The flow voids at the base the brain are intact. No mass. No hemorrhage. No acute infarct. Ventricles: Unremarkable. No ventriculomegaly. Bones/joints: Unremarkable. No acute fracture. Sinuses: Chronic left maxillary and ethmoid sinusitis. No acute sinusitis. Mastoid air cells: Unremarkable as visualized. No mastoid effusion. Orbits: Unremarkable as visualized. IMPRESSION: No evidence of acute intracranial pathology. Mild nonspecific white matter changes. Electronically signed by: Diana Breen MD 10/01/24 01:51 AM
[2024-10-01 08:10] LABS: Anion Gap 6 (3-11); BUN Creatinine Ratio 22.1 (10-20); Blood Urea Nitrogen 19 mg/dl (6-23); C Reactive Protein < 0.50 mg/dl (0-0.5); Calcium 8.9 mg/dl (8.6-10.3); Carbon Dioxide 25 mmol/L (21-32); Chloride 108 mmol/L (98-107); Chol HDL Ratio 4.4 (0-5); Cholesterol 168 mg/dl (0-200); Creatinine Clr Calc Pharmacy 109.2 ml/min; Glucose 99 mg/dl (70-99(Fasting)); HDL Cholesterol 38 mg/dl; LDL Cholesterol Calculated 112 mg/dl; Potassium 3.8 mmol/L (3.5-5.1); Sodium 139 mmol/L (136-145); Triglycerides 88 mg/dl (0-150); VLDL Cholesterol 18 mg/dl (0-30)
[2024-10-01 11:29] VITALS: O2SAT 94
[2024-10-01] MEDS: BACLOFEN 10 MG TAB PO ONE (11:44)
[2024-10-01] MEDS: ONDANSETRON INJ 2 MG/ML 2 ML VIAL IV STA (11:44)
[2024-10-01] MEDS: MAGNESIUM SULFATE / D5W 1 GM/100 ML BAG IV ONE (11:45)
[2024-10-01] MEDS: methylPREDNISolone 30 MG in SYRINGE 0 ML IV ONE (11:50)
[2024-10-01 14:59] VITALS: RESP 20; TEMP 97.7
[2024-10-01 16:59] VITALS: BP 159/90; PULSE 62
--- NOTE | 2024-10-01 16:59 | Discharge Summary ---
Discharge Summary Date of Service October 01, 2024 Principal Dx & Hospital Course #1 = Principal Diagnosis (1) Sinusitis: patient with significant sinus disease on imaging of the left maxillary sinus & the left ethmoid sinus he has had previous sinus surgery imaging findings likely to be mostly chronic, but can't rule out an element of acute worsening - especially in light of coronavirus infection some of his headache symptoms could be from the sinus disease as well as acute illness w/ coronavirus will treat for sinusitis x 10 days change doxy to augmentin 875mg BID plan MRV brain to r/o thrombosis of the sinuses plan MRI brain - r/o stroke, etc. would benefit from referral to ENT to manage his sinus disease (2) Coronavirus infection: resp biofire + for non-COVID coronavirus suspect this virus explains many of his URI symptoms, recent wheezing/chest symptoms, etc. no specific Rx needed patient made aware of this virus (3) Headache: partially due to #1 partially due to #2 can't exclude the subacute thrombosis of the left carotid contributing? gave oxycodone with relief treat the sinus disease f/u tomorrow MRI Brain, MRV head ordered r/o stroke, sinus thrombosis, etc. 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 Injury was 3-4 weeks ago. Provoked RLE DVT?? plan at least 3 months of Rx with Eliquis (10mg BID x 1 week then 5mg BID thereafter). (6) Hypertension: Continue Lisinopril 10mg po qAM Treat his headache & pain Follow (7) Chest pain: Echo w/o WMA abnormalities and with normal EF troponins negative Suspect chest discomfort/tightness is due to bronchitis from the coronavirus infection unlikely to be ischemic in etiology (8) Diabetes: Patient on oral agents at baseline. Last HytN9F=4.8 on 08/21/24 -Hold oral agents -Lantus 7u BID -Novolog SSI (9) Hypercholesterolemia: Check lipids am Continue Zetia 10mg po daily (10) GERD (gastroesophageal reflux disease): Protonix 40mg po daily Plan change observation status to full admission status if MRI brain/MRV head are negative and he is feeling ok tomorrow can likely d/c home then Admission HPI Per Admitting Provider Hai Evans is a 59yo male with history of DM, HTN, HLP and GERD presenting for additional workup. Mr. Evans twisted his right ankle approximately one month ago. He reports that the ankle and leg became swollen. He was seen by his PCP yesterday for this complaint - RLE edema as well as some wheezing. He had an outpatient RLE venous doppler performed which revealed an age indeterminate DVT in te right popliteal vein. He was started on Eliquis (10mg po BID x 7d then 5mg po BID) by his PCP. He was then sent to the ER to obtain a CTA chest given the presence of wheezing. ER workup included unremarkable CTA chest and CTA head. CTA of the neck did reveal a partial thrombosis at the left carotid bulb with 40-45% luminal narrowing at the carotid bulb - appears to be subacute in nature. The case was discussed with Vascular Surgery at the time of the ER visit and patient was ultimately discharged home with instruction to continue his Eliquis as prescribed and to followup with Vascular Surgery outpatient. Patient returned home.. Today he had elevated blood pressure of 175/111 as well as some dizziness, left sided headache and pain in the left side of the neck and face. He reports that he was having some of these symptoms yesterday and they are fairly stable. He has also been having intermittent left sided chest discomfort today as well as intermittent nausea. He denies visual changes, focal numbness/tingling or weakness. He was seen again by PCP today in followup and they discussed with Dr. Barrera's office and it was suggested that he return to the ER for additional workup. 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 He is not up to date with his age appropriate cancer screening - no prior Colonoscopy. No prior PSA evaluation. He has a known hernia and is scheduled for a CT scan of the abdomen for further evaluation. Reports passing gas. Had normal BM earlier today. In the ER patient is hypertensive, otherwise HD stable. No additional complaints Discharge Exam gen - NAD, lying comfortably in bed neck - no bruits, no JVD, no lymph nodes head - no sinus tenderness to palpation any sinus; no overlying abnormalities of sinuses heart - RRR, s1 s2, no murmur lungs - CTA b/l, no wheeze or rales abd - soft NT ND BS+ ext - <1+ edema RLE, no edema on left, pulses 2+ b/l feet Discharge Plan Discharge Items Patient Disposition: Home - Self-Care Reason For Visit: HEADACHE Discharge Diagnosis: 1. coronavirus infection (not COVID-19) 2. acute on chronic sinusitis 3. right leg DVT 4. left sided carotid artery thrombus 5. chest tightness/discomfort - no evidence of heart attack or blood clots of the lungs; likely bronchitis from #1 6. high blood pressure 7. tiny nodule right lung - follow-up CT scan needed for this Activity: Resume your previous activity Non-emergency contact: Primary Care Provider Call non-emergency contact if: you have any medication questions, your symptoms worsen, your pain is not controlled, your pain is worsening and you have a fever Follow-up/Referrals: Jeff Lindsey CRNP [Primary Care Provider] - 10/06/24 8:20 am Robert Barrera MD [Physician] - (please contact Dr Barrera's office early this coming week to confirm follow-up appointment information ) Arpan Burris MD [Physician] - 11/16/24 8:30 am Diet: Carb Consistent or DM2 Addtl Attending Provider Instructions: Mr Evans, You were hospitalized due to a variety of reasons including recently diagnosed right leg DVT, discovery of clot in your left carotid artery, headache, and respiratory/chest symptoms. You tested positive for a common cold virus called "Coronavirus" (this is NOT COVID-19). The virus you have likely is contributing to your sinus symptoms, headache, and chest symptoms. We did not find any evidence of blood clots of the lungs, heart attack, stroke, tumor of the brain, or pneumonia. I suspect your DVT in the right leg may have come as a result of your occupation as well as your recent injury to the ankle. It is possible that there are other yet to be identified factors that could have increased your risk of getting a blood clot. You received antibiotics for your sinus infection. Echocardiogram was checked due to your chest symptoms and was found to be normal. Your heart function was normal. You received various medicines to help with your headache. You continued on Eliquis for your DVT blood clot. Recommendations - 1. for sinus disease/sinusitis - * antibiotics x 9 additional days * the new antibiotic is amoxicillin-clavulanate 875mg twice daily * please discontinue the previously prescribed doxycycline * most common side effect of your new antibiotic -- diarrhea * consider using zucl-pjs-skugejn flonase or nasacort or nasonex daily * consider using zdee-ctv-zktaskh cass or zyrtec every day * see ENT as scheduled 2. for your DVT blood clot - * Eliquis - 10mg twice daily x 6 more days (take your next dose tonight) - THEN, * Eliquis - 5mg twice daily thereafter * you will need to be on this medicine for a minimum of 3-6 months - to be determined * see separate section on Eliquis below * avoid use of motrin, ibuprofen, naprosyn, aleve, aspirin while taking Eliquis * TYLENOL IS OK to take for aches/pains/headaches/fever/etc. 3. for nausea - ondansetron 4mg every 6 hours as needed 4. for blood pressure - increase your lisinopril to 10mg TWICE daily 5. for sinus disease & headache take a "medrol dose pack"; this is a steroid. It tapers -- that is, it starts at a higher dose and gradually reduces in dose over several days. Follow directions on package. Take with food. Know the steroid will raise your blood sugars over the next week. 6. I have sent some labs looking for various things that can cause blood clots. Those labs will return in about a week. We will contact you if any of them are abnormal and need to be addressed. Follow-up - see separate section Return to [facility] if - * you have bleeding from any location as listed below * you have fevers over 100 degrees * your headache worsens or persists despite taking the steroids, deyl-zzk-xlgktgt tylenol, etc. * you have worsening shortness of breath or chest pains * you develop severe diarrhea (more than 3 liquid stools over 24 hours) * any other concerns It was our pleasure to care for you! Happy holidays :) Addtl Glass Blower Provider Instructions: Blood Thinner (Anticoagulant) Medication Instructions: Your DVT blood clot condition is typically treated with an anticoagulant. Anticoagulants will thin your blood to help prevent new clots. Your blood thinner is ELIQUIS. * You should take your medication exactly as directed. * Never skip a dose. * Never take a double dose. If you miss a dose, take it as soon as you remember. Call your Primary Care doctor if you experience any of the following: * Swelling or Pain in your leg * Sudden, continuous pain deep in a muscle * Pain that worsens when you are active or when you stand still for a long time * Chest Pain * Sudden Shortness of Breath * Rapid or pounding heart beat * Fainting * Dizziness * Cough with blood or bloody sputum * Sweating more than normal * Bruises * Heavy or uncontrolled bleeding * Blood in your urine, stool or vomit * Black or tarry stools * Heavy nose bleeding Caring for Your Self at Home: * Avoid sitting, standing or lying down for long periods without moving your legs and feet * When traveling by car, stop to get out and move around at least once every 3 hours * On long airplane, train or bus rides, get up and move around when possible * If you can't get up, wiggle your toes and tighten your calves to keep your blood moving * When shaving please use an electric razor; do not use a traditional razor (Critz, etc) Pending Studies at Discharge: Yes Studies:: homocysteine level Stand-Alone Forms: My [facility], Smoking Cessation Medications and DC Order Prescriptions: New amoxicillin-pot clavulanate 875-125 mg Tablet 1 tab PO BIDM 9 Days Qty: 18 0RF ondansetron 4 mg tablet,disintegrating 4 mg PO Q6H PRN (Reason: nausea and vomiting) Qty: 10 0RF methylprednisolone 4 mg tablets,dose pack 4 mg PO DAILY Qty: 21 0RF Rx Instructions: medrol dose pack - follow taper instructions; start on 10/02/24; take with food. Continued metformin 1,000 mg tablet 500 mg PO BID Qty: 90 3RF sildenafil 50 mg tablet 50 mg PO DAILY PRN (Reason: sexual activity) Qty: 14 4RF Rx Instructions: administer 30 minutes to 4 hours before activity omeprazole 40 mg capsule,delayed release(DR/EC) 40 mg PO DAILY Qty: 90 3RF semaglutide 14 mg tablet 14 mg PO DAILY 90 Days Qty: 90 4RF triamcinolone acetonide 0.1 % cream 1 applic topical BID PRN (Reason: itching) Qty: 80 1RF (DME) blood sugar diagnostic Strip See Rx Instructions .ROUTE .MEDSUPPLY Qty: 50 3RF Rx Instructions: Testing blood sugar two times daily glimepiride 4 mg tablet 4 mg PO QAM Qty: 90 3RF albuterol sulfate 90 mcg/actuation HFA aerosol inhaler 2 puff inhalation Q6H PRN (Reason: shortness of breath or wheezing) Qty: 18 3RF Eliquis 5 mg tablet 5 mg PO BID Qty: 60 2RF empagliflozin 25 mg tablet 25 mg PO DAILY Qty: 90 1RF ezetimibe 10 mg tablet 10 mg PO DAILY Qty: 90 2RF Changed lisinopril 10 mg tablet 10 mg PO BID Qty: 60 2RF Discontinued doxycycline hyclate 100 mg tablet 100 mg PO BID 7 Days Qty: 14 0RF Discharge Orders: Discharge Order (Routine); Ordered 10/01/24 Ordered By: Rey Tanner/Other Patient Handouts: Understanding Deep Vein Thrombosis, Chronic Sinusitis, Treating Chronic Sinusitis, Carotid Artery Disease Admission Data Admit Date/Time: 09/30/24 13:57 Attending Provider: Rey Lovelace Admit Provider: Janine Man Primary Care Provider: Jeff Lindsey Other Providers: Janine Man Hospital Stay Data Consultations 09/29/24 21:47 ED Decision to Admit Stat Diagnostic Imagining Performed 09/29/24 20:35 CT head/brain wo con Stat 09/30/24 13:31 MR brain wo con Routine MR venography head wo con Routine Pending Results Patient Have Any Pending Studies at Discharge: Yes Discharge Instructions Given to Patient (Per Discharging Provider) Mr Evans, You were hospitalized due to a variety of reasons including recently diagnosed right leg DVT, discovery of clot in your left carotid artery, headache, and respiratory/chest symptoms. You tested positive for a common cold virus called "Coronavirus" (this is NOT COVID-19). The virus you have likely is contributing to your sinus symptoms, headache, and chest symptoms. We did not find any evidence of blood clots of the lungs, heart attack, stroke, tumor of the brain, or pneumonia. I suspect your DVT in the right leg may have come as a result of your occupation as well as your recent injury to the ankle. It is possible that there are other yet to be identified factors that could have increased your risk of getting a blood clot. You received antibiotics for your sinus infection. Echocardiogram was checked due to your chest symptoms and was found to be normal. Your heart function was normal. You received various medicines to help with your headache. You continued on Eliquis for your DVT blood clot. Recommendations - 1. for sinus disease/sinusitis - * antibiotics x 9 additional days * the new antibiotic is amoxicillin-clavulanate 875mg twice daily * please discontinue the previously prescribed doxycycline * most common side effect of your new antibiotic -- diarrhea * consider using szmv-rak-lrucram flonase or nasacort or nasonex daily * consider using weum-oxe-fmhtpwe cass or zyrtec every day * see ENT as scheduled 2. for your DVT blood clot - * Eliquis - 10mg twice daily x 6 more days (take your next dose tonight) - THEN, * Eliquis - 5mg twice daily thereafter * you will need to be on this medicine for a minimum of 3-6 months - to be determined * see separate section on Eliquis below * avoid use of motrin, ibuprofen, naprosyn, aleve, aspirin while taking Eliquis * TYLENOL IS OK to take for aches/pains/headaches/fever/etc. 3. for nausea - ondansetron 4mg every 6 hours as needed 4. for blood pressure - increase your lisinopril to 10mg TWICE daily 5. for sinus disease & headache take a "medrol dose pack"; this is a steroid. It tapers -- that is, it starts at a higher dose and gradually reduces in dose over several days. Follow directions on package. Take with food. Know the steroid will raise your blood sugars over the next week. 6. I have sent some labs looking for various things that can cause blood clots. Those labs will return in about a week. We will contact you if any of them are abnormal and need to be addressed. Follow-up - see separate section Return to [facility] if - * you have bleeding from any location as listed below * you have fevers over 100 degrees * your headache worsens or persists despite taking the steroids, dafo-itx-spdlyel tylenol, etc. * you have worsening shortness of breath or chest pains * you develop severe diarrhea (more than 3 liquid stools over 24 hours) * any other concerns It was our pleasure to care for you! Happy holidays :) Coding Diagnoses Sinusitis J32.9 Coronavirus infection B34.2 Headache R51.9 Headache chronicity pattern: acute headache Headache type: unspecified Intractability: not intractable Carotid artery thrombosis I65.22 Laterality: left DVT (deep venous thrombosis) I82.431 Affected thrombotic vein of extremity: popliteal Chronicity: acute DVT location: lower extremity Laterality: right Hypertension I10 Chest pain R07.9 Diabetes E11.9 Hypercholesterolemia E78.00 GERD (gastroesophageal reflux disease) K21.9
[2024-10-06] MEDS ORDERED: APIXABAN 5 MG TABLET PO SCH (09:00)
== END 2024-10-01 18:31 | disposition home or self-care (01) | DRG 153 ==
LOC: ED 18:17 → 2N 18:17 → SUATTDRO 22:58 → 2N 09-30 00:33
DX: J40 Bronchitis, not specified as acute or chronic; E78.00 Pure hypercholesterolemia, unspecified; B97.29 Other coronavirus as the cause of diseases classified elsewhere; S99.911D Unspecified injury of right ankle, subsequent encounter; I82.431 Acute embolism and thrombosis of right popliteal vein; J32.0 Chronic maxillary sinusitis; J32.2 Chronic ethmoidal sinusitis; I65.22 Occlusion and stenosis of left carotid artery; Z79.899 Other long term (current) drug therapy; K21.9 Gastro-esophageal reflux disease without esophagitis; Z88.5 Allergy status to narcotic agent; X50.1XXD Overexertion from prolonged static or awkward postures, subsequent encounter; E11.9 Type 2 diabetes mellitus without complications; Z79.84 Long term (current) use of oral hypoglycemic drugs; I10 Essential (primary) hypertension

== ENCOUNTER 2024-10-30 19:28 | Inpatient (IN) ==
[2024-10-30 22:05] LABS: Basophils # (auto) 0.04 K/uL (0.00-0.20); Basophils % (auto) 0.5 %; Eosinophils # (auto) 0.13 K/uL (0.00-0.50); Eosinophils % (auto) 1.7 %; Hematocrit (blood only) 43.7 % (42.0-52.0); Hemoglobin 15.2 g/dl (14.0-18.0); Immature Granulocytes # (auto) 0.01 K/uL (0.01-0.20); Immature Granulocytes % (auto) 0.1 %; Lymphocytes # (auto) 2.78 K/uL (1.20-3.40); Lymphocytes % (auto) 36.2 %; Mean Corpuscular Hemoglobin 29.9 pg (25.0-34.0); Mean Corpuscular Hgb Conc 34.8 g/dL (32.0-36.0); Mean Corpuscular Volume 85.9 fL (80.0-100.0); Mean Platelet Volume 9.3 fL (9.4-12.4); Monocytes # (auto) 0.52 K/uL (0.11-0.59); Monocytes % (auto) 6.8 %; Neutrophils # (auto) 4.21 K/uL (1.40-6.50); Neutrophils % (auto) 54.7 %; Platelet Count 247 K/uL (130-400); RDW Coefficient of Variation 13.1 % (11.5-14.5); RDW Standard Deviation 40.4 fL (36.4-46.3); Red Blood Count 5.09 M/uL (4.70-6.10); White Blood Count 7.69 K/ul (4.8-10.8)
[2024-10-30 22:09] LABS: Appearance Urine Clear (Clear); Bilirubin Urine Negative (Negative); Blood Urine Negative (Negative); Color Urine Yellow; Glucose Urine UA 2+ (Negative); Ketones Urine Negative (Negative); Leukocyte Esterase Urine Negative (Negative); Nitrite Urine Negative (Negative); Protein Urine Negative (Negative); Urobilinogen Urine Negative (Negative); pH Urine 5.5 (4.5-7.5)
[2024-10-30 22:24] LABS: Albumin Globulin Ratio 1.8 (0.9-2); Albumin Level 4.5 gm/dl (3.4-5.0); Bilirubin,Total 0.7 mg/dl (0.2-1.0); Calcium 9.4 mg/dl (8.6-10.3); Creatinine Clr Calc Pharmacy 99.3 ml/min; Globulin 2.5 gm/dl (2.5-4.0)
[2024-10-30] MEDS: OPTIRAY 320 125ml IV ONE (22:54)
[2024-10-30 23:02] LABS: Troponin I High Sensitivity 3.7 pg/ml (0-20)
--- NOTE | 2024-10-30 23:23 | History & Physical Report ---
Date of Service October 30, 2024 Assessment & Plan (1) Deep vein thrombosis, lower right extremity: (2) Failure of outpatient treatment: (3) Carotid artery thrombosis: (4) Diabetes mellitus, type 2: Plan Hai is a 59-year-old male with a past medical history of DVT in September 2024 on Eliquis, carotid artery thrombosis, hypertension, DM, hyperlipidemia, GERD. He presents today due to worsening leg swelling and pain despite being compliant on Eliquis. He is being admitted for recurrence of DVT failing outpatient therapy; being started on heparin on admission and hematology consult placed. 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 venous Doppler showing persistent nonocclusive DVT of 1 of popliteal veins, could represent chronic or acute on chronic DVT Chest CTA negative for PE discontinue Eliquis Start heparinization on admission Hypercoagulable workup ordered in ED - Lupus workup negative during previous admission consult hematology - workup regarding failure of Eliquis - possibly warfarin versus Lovenox on discharge still needs appointment set up with vascular out pt #DM Controlled on Jardiance, glimepiride, metformin at home; held recent A1c 7.8 resume insulin regimen from previous admission - lantus 7 U BID and loose SSI Chronic stable diagnoses: HTN - Continue lisinopril and amlodipine GERD - continue PPI HLD - continue Zetia chronic sinusitis - has appointment with ENT in November, mild headache on exam - tylenol prn VTE ppx: heparinized Diet: t2dm Dispo: med tele Admission and Anticipated Discharge Date Admission Date: 10/31/24 History of Present Illness Chief Complaint: leg injury/ pain Primary Care Provider: CAMRON Warner Hai is a 59-year-old male with a past medical history of DVT in September 2024 on Eliquis, carotid artery thrombosis, hypertension, DM, hyperlipidemia, GERD. He presents today due to worsening leg swelling and pain despite being compliant on Eliquis. He is being admitted for recurrence of DVT failing outpatient therapy; being started on heparin on admission and hematology consult placed. Patient seen at bedside. He stated 1 to 2 weeks ago he began with right foot swelling that has progressed up his leg. He also noticed varicose veins of his right foot. He did not have leg swelling with the original DVT. He also stated he has difficulty with moving his foot. He has pain of his right leg. He stated he has been compliant on Eliquis taking it twice a day. He also endorses numbness of his right foot however chronic and also on the left foot, suspect neuropathy from diabetes. He endorses dyspnea on exertion, however chronic and unchanged. He stated that he drives truck for work, he stops every 2 hours to get out of move around; he only drives truck to [place]. He has tried wearing teds to help with the swelling but finds they are hard to put on. His original DVT was provoked from an injury, he stated he twisted his ankle. He has had headaches again and having sinus issues, he has an appointment with ENT in November. He was to have a Holter monitor put on next Saturday. He has not yet set up an appointment with vascular. Patient denies chest pain, abdominal pain, nausea, vomiting, diarrhea. Does not use nicotine products or drink alcohol. He denies past history of cancer. He does not use oxygen at baseline. He did not take his evening medications yet. He wishes to be full code at this time. He denies past history of known hypercoagulable conditions. He denies familial history of this as well. Allergies Allergy/AdvReac Type Severity Reaction Status Date / Time oxycodone [From Percocet] Allergy Intermediate ITCHING Verified 10/15/24 12:00 Home Medications Medication Instructions Recorded Confirmed Type triamcinolone acetonide 0.1 % 1 applic topical BID PRN itching 12/11/22 10/31/24 Rx topical cream #80 grams blood sugar diagnostic #50 ea 12/30/23 10/31/24 Rx glimepiride 4 mg tablet 4 mg PO QAM #90 tabs 12/30/23 10/31/24 Rx sildenafil 50 mg tablet 50 mg PO DAILY PRN sexual activity 06/23/24 10/31/24 Rx #14 tabs omeprazole 40 mg capsule,delayed 40 mg PO DAILY #90 caps 07/17/24 10/31/24 Rx release semaglutide 14 mg tablet 14 mg PO DAILY 90 days #90 tabs 08/25/24 10/31/24 Rx albuterol sulfate 90 mcg/actuation 2 puff inhalation Q6H PRN 09/28/24 10/31/24 Rx aerosol inhaler shortness of breath or wheezing #18 grams apixaban 5 mg tablet (Eliquis) 5 mg PO BID #60 tabs 09/29/24 10/31/24 Rx empagliflozin 25 mg tablet 25 mg PO DAILY #90 tabs 09/29/24 10/31/24 Rx ezetimibe 10 mg tablet 10 mg PO DAILY #90 tabs 09/29/24 10/31/24 Rx ondansetron 4 mg disintegrating 4 mg PO Q6H PRN nausea and 10/01/24 10/31/24 Rx tablet vomiting #10 tabs amlodipine 2.5 mg tablet 2.5 mg PO HS #90 tabs 10/06/24 10/31/24 Rx lisinopril 20 mg tablet 20 mg PO DAILY #90 tabs 10/06/24 10/31/24 Rx metformin 1,000 mg tablet 500 mg PO BID 10/06/24 10/31/24 History Past Med/Surg History Problem List (Updated 10/31/24 @ 01:09 by Maira Sherman PA-C) Failure of outpatient treatment (Acute) Chronic venous insufficiency Pulmonary nodule Coronavirus infection Sinusitis Carotid artery thrombosis (Acute) Hypertension (Acute) Headache (Acute) Chest pain Deep vein thrombosis, lower right extremity (Acute) Diabetes Left inguinal hernia Recurrent right inguinal hernia Inguinal hernia recurrent bilateral Statin intolerance Hypercholesterolemia Statin medication declined by patient Temporomandibular joint disorder Esophageal stricture S/P EGD with dilitation Diabetes mellitus, type 2 Asthma DOES NOT USE INHALER (WAS PRESCRIBED ONE IN THE PAST) History of cardiac arrest self reported cardiac arrest with wrist surgery after reversal agents given for anesthesia. Medical History Hypertension Surgical History S/P hernia surgery (2019) Family history of reaction to anesthesia History of anesthesia reaction History of open reduction and internal fixation (ORIF) procedure History of esophagogastroduodenoscopy (EGD) History of tooth extraction History of endoscopic sinus surgery Family History Mother Family history of diabetes mellitus Grandfather (Maternal) Stroke Grandfather (Paternal) Stroke Father Hypertension Denies family history of Ovarian cancer Prostate cancer Myocardial infarction Breast cancer Colorectal cancer Cancer Social History Smoking Status: Former smoker Tobacco Type: Cigarettes Age Started Using Tobacco: 8; Age Quit Using Tobacco: 45; packs per day: 0.25; Second Hand Exposure: No; Do You Dip or Chew Tobacco: No; Tobacco Cessation Education Requested by Patient: No Hx Alcohol Use: No Hx Substance Use: No Preferred Language: [place]ian Communication Ability: Effective Visual Impairment: Limited Hearing Ability: Normal Powder Carrier Required: No Beliefs That Will Affect Care: None marital status: Current Living Situation: Family current occupational status: employed 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 How many Children do You have: 2 How many Children do You have Comment: 2 children- 2 steps Other Information That Helps Us Care for You: No Feels Safe at Home: Yes Safety Concerns: Feels Safe At This Time Childhood Exposure to Second-Hand Smoke: Yes (father) Diet: regular caffeine: Yes during the past year weight has: remained stable Dental Care, Regularly: Yes Physical Activity Frequency: Does not Exercise Seatbelt Use: always Sunscreen Use: No Assistive Devices: None Review of Systems Review of Systems: see HPI Physical Exam Physical Exam: The patient is awake, alert and oriented 3, well developed and well nourished, normocephalic and atraumatic, in no acute distress. Non-toxic appearing. HEENT- EOMI, mucous membranes moist. Hearing grossly intact. Heart-normal S1 and S2. No murmurs, rubs or gallops. Lungs-clear bilaterally, no respiratory distress, no accessory muscle use. Abdomen-normal bowel sounds and soft. No ascites noted. Non-tender. Extremities- Right lower extremity with significant swelling, positive Homans' sign, previous wounds of right foot. Left LE without edema. Rheumatologic-normal range of motion. Psychiatric-normal affect. Results & Data Results & Data Vital Signs (Past 12 Hours) Vital Signs Temp Pulse Pulse Resp BP BP Pulse Ox 10/30/24 22:15 65 16 146/75 H 96 10/30/24 22:08 68 16 137/80 96 10/30/24 19:42 36.8 C 80 17 139/93 96 O2 Del Method 10/30/24 22:15 Room Air 10/30/24 22:08 Room Air 10/30/24 19:42 Room Air Laboratory Results Reviewed CBC, PT/INR, CMP, UA Medications Administered ED: heparinized ECG Additional Comments: ordered Code Status & VTE Plan Code Status full VTE Prophylaxis Plan VTE Prophylaxis will be ordered: Yes Supervising Physician Co-Signing Physician Notes Attending addendum: I have physically seen this patient, have supervised the HALIMA's activities, and agree with the H&P unless as otherwise noted. Assessment and Plan: The patient is a 59-year-old male with past medical history including right lower extremity DVT September 2024 on Eliquis, carotid artery thrombosis, hypertension, diabetes mellitus, hyperlipidemia, GERD. He presents to the emergency department with worsening of right lower extremity swelling, and pain, despite reportedly taking Eliquis as directed. Acute worsening of right lower extremity DVT- Despite appropriate treatment with Eliquis, indicating an outpatient failure Patient had been on Eliquis 10 mg twice daily x 1 week, and then had decreased to 5 mg twice daily with plan for 3 months Recurrent venous Doppler this evening shows persistent nonocclusive DVT of one of the popliteal veins, that could represent chronic or acute on chronic DVT Chest CTA negative for PE Discontinue Eliquis Placing on heparin drip standard dosing per protocol with bolus Patient does have history of low level lupus anticoagulant Will ask hematology opinion regarding long-term anticoagulation Carotid artery thrombosis- Also diagnosed during admission from 09/29-10/01/2024 Repeat studies pending Diabetes mellitus- A1c 7.8 Continuing insulin regiment and SSI as noted Chronic medical conditions: Hypertension-continue lisinopril amlodipine with hold parameters Hyperlipidemia-continue Zetia GERD-continue pantoprazole PG Care Time/CCT Total # of Minutes Spent Total Time Spent with Patient: Total time spent is greater than 50% in coordination of care (as documented) at patient's floor/unit and/or counseling patient: Coding Level of Care Code 71014 INT INP/OBS CARE 3/75MIN Diagnoses Deep vein thrombosis, lower right extremity I82.401 Affected thrombotic vein of extremity: unspecified vein of extremity Chronicity: acute Failure of outpatient treatment Z78.9 Carotid artery thrombosis I65.22 Laterality: left Diabetes mellitus, type 2 E11.9 (1) Deep vein thrombosis, lower right extremity Affected thrombotic vein of extremity: unspecified vein of extremity Chronicity: acute Qualified Code(s): I82.401 - Acute embolism and thrombosis of unspecified deep veins of right lower extremity (3) Carotid artery thrombosis Laterality: left Qualified Code(s): I65.22 - Occlusion and stenosis of left carotid artery
[2024-10-30 23:25] LABS: INR 0.9 (0.9-1.1); Partial Thromboplastin Ratio 1.1; Partial Thromboplastin Time 29 Seconds (21-31); Prothrombin Time 10.3 Seconds (9.0-12.0)
[2024-10-31] MEDS: HEPARIN SODIUM/DEXTROSE 25,000 UNITS/500 ML BAG IV SCH (00:37)
[2024-10-31] MEDS: Heparin IV Adult Wt-Based Standard w/ INITIAL Bolus Protocol IV STA (00:39)
[2024-10-31] MEDS: HEPARIN SOD (PORCINE) 1000 UNIT/ML IV ONE (00:39)
--- NOTE | 2024-10-31 01:10 | Emergency Department Note ---
History of Present Illness General Chief complaint: Leg Injury/Pain Stated complaint: REF BY BRANDI,Jong CALF SWOLLEN,?CLOT Time Seen by Provider: 10/30/24 22:23 History of Present Illness Maximum Pain Intensity: 6 This 59-year-old male on Eliquis for history of DVT last month who has not missed a dose presents ER for worsening right lower leg pain and swelling and some mild dyspnea. He does not smoke. No trauma to the area. Patient denies chest pain, fever, chills, injury to the area, flulike illness. No history of PE. Patient states he is unsure why he developed the DVT. Home Medications Medication Instructions Recorded Confirmed Type triamcinolone acetonide 0.1 % 1 applic topical BID PRN itching 12/11/22 10/31/24 Rx topical cream #80 grams blood sugar diagnostic #50 ea 12/30/23 10/31/24 Rx glimepiride 4 mg tablet 4 mg PO QAM #90 tabs 12/30/23 10/31/24 Rx sildenafil 50 mg tablet 50 mg PO DAILY PRN sexual activity 06/23/24 10/31/24 Rx #14 tabs omeprazole 40 mg capsule,delayed 40 mg PO DAILY #90 caps 07/17/24 10/31/24 Rx release semaglutide 14 mg tablet 14 mg PO DAILY 90 days #90 tabs 08/25/24 10/31/24 Rx albuterol sulfate 90 mcg/actuation 2 puff inhalation Q6H PRN 09/28/24 10/31/24 Rx aerosol inhaler shortness of breath or wheezing #18 grams apixaban 5 mg tablet (Eliquis) 5 mg PO BID #60 tabs 09/29/24 10/31/24 Rx empagliflozin 25 mg tablet 25 mg PO DAILY #90 tabs 09/29/24 10/31/24 Rx ezetimibe 10 mg tablet 10 mg PO DAILY #90 tabs 09/29/24 10/31/24 Rx ondansetron 4 mg disintegrating 4 mg PO Q6H PRN nausea and 10/01/24 10/31/24 Rx tablet vomiting #10 tabs amlodipine 2.5 mg tablet 2.5 mg PO HS #90 tabs 10/06/24 10/31/24 Rx lisinopril 20 mg tablet 20 mg PO DAILY #90 tabs 10/06/24 10/31/24 Rx metformin 1,000 mg tablet 500 mg PO BID 10/06/24 10/31/24 History Allergies Allergy/AdvReac Type Severity Reaction Status Date / Time oxycodone [From Percocet] Allergy Intermediate ITCHING Verified 10/15/24 12:00 Past Med/Surg History Problem List (Updated 10/31/24 @ 01:09 by Maira Sherman PA-C) Failure of outpatient treatment (Acute) Chronic venous insufficiency Pulmonary nodule Coronavirus infection Sinusitis Carotid artery thrombosis (Acute) Hypertension (Acute) Headache (Acute) Chest pain Deep vein thrombosis, lower right extremity (Acute) Diabetes Left inguinal hernia Recurrent right inguinal hernia Inguinal hernia recurrent bilateral Statin intolerance Hypercholesterolemia Statin medication declined by patient Temporomandibular joint disorder Esophageal stricture S/P EGD with dilitation Diabetes mellitus, type 2 Asthma DOES NOT USE INHALER (WAS PRESCRIBED ONE IN THE PAST) History of cardiac arrest self reported cardiac arrest with wrist surgery after reversal agents given for anesthesia. Medical History Hypertension Surgical History S/P hernia surgery (2019) Family history of reaction to anesthesia History of anesthesia reaction History of open reduction and internal fixation (ORIF) procedure History of esophagogastroduodenoscopy (EGD) History of tooth extraction History of endoscopic sinus surgery Family History Mother Family history of diabetes mellitus Grandfather (Maternal) Stroke Grandfather (Paternal) Stroke Father Hypertension Denies family history of Ovarian cancer Prostate cancer Myocardial infarction Breast cancer Colorectal cancer Cancer Social History Smoking Status: Never smoker Tobacco Type: Cigarettes Age Started Using Tobacco: 8; Age Quit Using Tobacco: 45; packs per day: 0.25; Second Hand Exposure: No; Do You Dip or Chew Tobacco: No; Hx Alcohol Use: No Hx Substance Use: No Preferred Language: Croatian Communication Ability: Effective Visual Impairment: Limited Hearing Ability: Normal Net C Developer Required: No Beliefs That Will Affect Care: None marital status: Current Living Situation: Spouse current occupational status: employed 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 How many Children do You have: 2 How many Children do You have Comment: 2 children- 2 steps Feels Safe at Home: Yes Childhood Exposure to Second-Hand Smoke: Yes (father) Diet: regular caffeine: Yes during the past year weight has: remained stable Dental Care, Regularly: Yes Physical Activity Frequency: Does not Exercise Seatbelt Use: always Sunscreen Use: No Assistive Devices: None Review of Systems A total of 10 systems reviewed and were otherwise negative Physical Exam Vital Signs Vital Signs - 24 hr 10/30/24 19:42 10/30/24 22:08 10/30/24 22:15 Temperature 36.8 C Temperature Source Temporal Artery Scan Pulse Rate 80 Pulse Rate [Finger] 68 65 Respiratory Rate 17 16 16 Respiratory Effort / Characteristics Non-Labored Spontaneous Non-Labored Spontaneous Respiratory Depth Normal Normal Respiratory Pattern Regular Regular Blood Pressure 139/93 Blood Pressure [Left Arm] 137/80 146/75 H Blood Pressure Mean 108 Blood Pressure Mean [Left Arm] 99 98 Pulse Oximetry 96 96 96 Oxygen Delivery Method Room Air Room Air Room Air Sepsis Recent Fever Within 48 Hours No Sepsis New/Unexplained Change in Mental Status N/A Sepsis Action Taken by Nursing No Action Required 10/31/24 00:00 10/31/24 01:43 Temperature Temperature Source Pulse Rate Pulse Rate [Finger] 101 H 85 Respiratory Rate 18 16 Respiratory Effort / Characteristics Respiratory Depth Respiratory Pattern Blood Pressure Blood Pressure [Left Arm] 132/98 134/84 Blood Pressure Mean Blood Pressure Mean [Left Arm] 109 100 Pulse Oximetry 99 99 Oxygen Delivery Method Room Air Sepsis Recent Fever Within 48 Hours Sepsis New/Unexplained Change in Mental Status Sepsis Action Taken by Nursing VITALS: Vitals are noted on the nurse's note and reviewed by myself. Vital signs stable. GENERAL: Pleasant male, in no acute distress, nondiaphoretic, well-developed well-nourished. SKIN: Capillary reflex less than 2 seconds. HEENT: Normocephalic. PERRLA. EOMI. Nares patent. Mucous membranes moist. Neck is supple without nuchal rigidity. HEART: Regular rate and rhythm LUNGS: Clear to auscultation bilaterally without wheezes, rales or rhonchi. No retractions or accessory muscle use. ABDOMEN: Positive bowel sounds x 4. Normal tympanic percussion. Soft, nontender, without masses or organomegaly. Pop sign negative. No guarding or rebound tenderness. no CVA tenderness MUSCULOSKELETAL: No gross musculoskeletal defects. Right lower leg erythematous and edematous positive Homans' sign concerning for DVT. Pedal pulses +2 equal and present bilaterally. NEURO: Patient was alert and oriented to person place and time. No focal neurological deficits. Course Administered Medications Heparin Sodium/Dextrose (Heparin Sodium/Dextrose) 25,000 units in 500 mls @ 26 mls/hr IV .[id number] [facility]; Protocol Stop: 11/29/24 23:29 Last Admin: 10/31/24 00:37 Dose: 1,300 units/hr, 26 mls/hr Documented By: DIEGO Co-signed By: ELIZABETH Discontinued Medications Heparin Sodium (Porcine) (Heparin Sod (Porcine) 1000 Unit/Ml) 1 units IV NOW ONE Stop: 10/30/24 23:20 Last Admin: 10/31/24 00:39 Dose: 3,000 units Documented By: DIEGO Co-signed By: ELIZABETH Heparin Sodium/Dextrose (Heparin Iv Adult Wt-Based Standard W/ Initial Bolus Protocol) 1 each IV NOW STA; Protocol Stop: 10/30/24 23:04 Last Admin: 10/31/24 00:39 Dose: Not Given Documented By: DIEGO Ioversol (Optiray 320 125ml) 119 ml IV ONCE ONE Stop: 10/30/24 22:55 Last Admin: 10/30/24 22:54 Dose: 119 ml Documented By: CLAUDE Critical Care Time Critical Care Time: Yes Total Critical Care Time: 35 I have personally spent 35 minutes of critical care time in the direct management of this patient. This includes bedside care, interpretation of diagnostic studies, and testing, discussion with consultants, patient, and family members, and other required patient management activities. This 35 minutes is in excess of all separately billable procedures. Medical Decision Making Medical Records Attestation: I reviewed the patient's medical records. Home Medications Current Medication List: was personally reviewed by me Laboratory Data Attestation: I reviewed the patient's lab results. 10/30/24 21:50 10/30/24 21:50 Lab Results 10/30/24 10/30/24 10/30/24 Range/Units 21:05 21:50 23:39 WBC Cancelled 7.69 RBC Cancelled 5.09 Hgb Cancelled 15.2 Hct Cancelled 43.7 MCV Cancelled 85.9 MCH Cancelled 29.9 MCHC Cancelled 34.8 RDW Std Deviation Cancelled 40.4 RDW Coeff of Jacinto Cancelled 13.1 Plt Count Cancelled 247 MPV Cancelled 9.3 L Immature Gran % (Auto) Cancelled 0.1 Neut % (Auto) Cancelled 54.7 Lymph % (Auto) Cancelled 36.2 [place] % (Auto) Cancelled 6.8 Eos % (Auto) Cancelled 1.7 Baso % (Auto) Cancelled 0.5 Neut # (Auto) Cancelled 4.21 Lymph # (Auto) Cancelled 2.78 [place] # (Auto) Cancelled 0.52 Eos # (Auto) Cancelled 0.13 Baso # (Auto) Cancelled 0.04 Immature Gran # (Auto) Cancelled 0.01 Absolute Nucleated RBC Cancelled Nucleated RBC % (auto) Cancelled Neutrophils % (Manual) Cancelled Band Neutrophils % Cancelled Lymphocytes % (Manual) Cancelled Prolymphocyte % Cancelled Reactive Lymphs % (Man) Cancelled Monocytes % (Manual) Cancelled Eosinophils % (Manual) Cancelled Basophils % (Manual) Cancelled Metamyelocytes % (Man) Cancelled Myelocytes % (Man) Cancelled Promyelocytes % (Man) Cancelled Blast Cells % (Manual) Cancelled Plasma Cell % (Manual) Cancelled Other Cells % Cancelled Nucleated RBC % Cancelled Neutrophils # (Manual) Cancelled Band Neutrophils # Cancelled Total Absolute Neuts Cancelled Lymphocytes # (Manual) Cancelled Prolymphocyte # Cancelled Reactive Lymphs # Cancelled Total Abs Lymphocytes Cancelled Monocytes # (Manual) Cancelled Eosinophils # (Manual) Cancelled Basophils # (Manual) Cancelled Metamyelocytes # (Man) Cancelled Myelocytes # (Manual) Cancelled Promyelocytes # (Man) Cancelled Blast Cells # (Man) Cancelled Plasma Cell # (Manual) Cancelled Other Cells # Cancelled Nucleated RBCs # (Man) Cancelled Hypersegmented Neuts Cancelled Hyposegmented Neuts Cancelled Hypogranular Neuts Cancelled Large Granular Lymphs Cancelled # Lrg Granular Lymphs Cancelled Hairy Cells Cancelled Smudge Cells Cancelled Toxic Granulation Cancelled Toxic Vacuolation Cancelled Dohle Bodies Cancelled Brett Rods Cancelled Platelet Estimate Cancelled Hypogranular Platelets Cancelled Giant Platelets Cancelled Platelet Satelliting Cancelled RBC Morphology Cancelled Polychromasia Cancelled Hypochromasia Cancelled Poikilocytosis Cancelled Basophilic Stippling Cancelled Anisocytosis Cancelled Microcytosis Cancelled Macrocytosis Cancelled Spherocytes Cancelled Pappenheimer Bodies Cancelled Sickle Cells Cancelled Target Cells Cancelled Tear Drop Cells Cancelled Ovalocytes Cancelled Stomatocytes Cancelled [place] Bodies Cancelled Echinocytes Cancelled Acanthocytes (Spur) Cancelled Rouleaux Cancelled RBC Agglutinates Cancelled Schistocytes Cancelled Sezary Cell Cancelled PT 10.3 (9.0-12.0) Seconds INR 0.9 (0.9-1.1) APTT 29 (21-31) Seconds PTT Ratio 1.1 Heparin Anti-Xa, Unfract 0.30 (0.3-0.7) IU/ml Sodium Cancelled 138 Potassium Cancelled 4.0 Chloride Cancelled 108 H Carbon Dioxide Cancelled 24 Anion Gap Cancelled 6 BUN Cancelled 18 Creatinine Cancelled 0.82 Est Cr Clr Drug Dosing Cancelled 99.3 eGFR Cancelled 100.56 BUN/Creatinine Ratio Cancelled 22.0 H Glucose Cancelled 121 H Calcium Cancelled 9.4 Total Bilirubin Cancelled 0.7 AST Cancelled 14 ALT Cancelled 16 Alkaline Phosphatase Cancelled 87 Troponin I High Sens 3.7 (0-20) pg/ml Total Protein Cancelled 7.0 Albumin Cancelled 4.5 Globulin Cancelled 2.5 Albumin/Globulin Ratio Cancelled 1.8 Lipase Cancelled 53 Urine Color Yellow Urine Appearance Clear (Clear) Urine pH 5.5 (4.5-7.5) Ur Specific [place] 1.040 H (1.000-1.030) Urine Protein Negative (Negative) Urine Glucose (UA) 2+ H (Negative) Urine Ketones Negative (Negative) Urine Blood Negative (Negative) Urine Nitrite Negative (Negative) Urine Bilirubin Negative (Negative) Urine Urobilinogen Negative (Negative) Ur Leukocyte Esterase Negative (Negative) Blood Parasites ID Cancelled Imaging Data Attestation: I personally reviewed and interpreted this imaging study as follows: Radiologist's Impression: Venous Doppler Study 10/30/24 19:46 Exam(s): US VENOUS RIGHT LOWER EXTREMITY EXAM: US Duplex Right Lower Extremity Veins CLINICAL HISTORY: Reason for exam: swelling. TECHNIQUE: Real-time duplex ultrasound scan of the right lower extremity veins integrating B-mode two-dimensional vascular structure, Doppler spectral analysis, color flow Doppler imaging and compression. COMPARISON: 09/28/24 FINDINGS: Deep veins: Duplicated popliteal veins with persistent nonocclusive DVT in 1 of the popliteal veins. No DVT in the visualized common femoral, femoral, or proximal deep femoral veins. Superficial veins: Unremarkable. No thrombus in the visualized great saphenous vein. Soft tissues: No acute findings. IMPRESSION: Duplicated popliteal veins with persistent nonocclusive DVT in 1 of the popliteal veins. This could represent chronic or acute on chronic DVT. Correlate clinically. Electronically signed by: Efra Contreras M.D. 10/31/24 01:24 AM Chest CTA 10/30/24 22:28 Exam(s): CTA CHEST IV Amt: 119 cc opti 320 EXAM: CT Angiography Chest With Intravenous Contrast CLINICAL HISTORY: Reason for exam: PE. TECHNIQUE: Axial computed tomographic angiography images of the chest with intravenous contrast. CTDI is 24.79 mGy and DLP is 860.71 mGy-cm. Automated exposure control was utilized for the study. A dose lowering technique was utilized adhering to the principles of ALARA. MIP reconstructed images were created and reviewed. COMPARISON: 09/28/24 FINDINGS: Pulmonary arteries: Unremarkable. No evidence of acute pulmonary embolism. Aorta: No acute findings. No aortic aneurysm or dissection. Lungs: No consolidation or mass. Stable 4 mm juxta-pleural right lower lobe pulmonary nodule (3-42); per Fleischner Society guidelines, no follow-up indicated. Pleural space: Unremarkable. No significant effusion. No pneumothorax. Heart: Mild coronary artery atherosclerosis involving the left anterior descending coronary artery. No cardiomegaly or pericardial effusion. Bones/joints: No acute fracture. No dislocation. Soft tissues: Unremarkable. Lymph nodes: Unremarkable. No enlarged lymph nodes. IMPRESSION: No evidence of acute pulmonary embolism. Electronically signed by: Efra Contreras M.D. 10/31/24 01:30 AM MDM Narrative Prior records reviewed and summarized above. Triage Nursing notes reviewed. Additional history obtained from nursing The patient's history was concerning for swelling and pain in the leg. Differential diagnosis: Etiologies such as DVT, musculoskeletal, infection, joint effusion, trauma, lymphedema, idiopathic, CHF, as well as others were entertained.. Physical examination: The physical examination revealed no signs of infection. Neurovascularly intact. ER treatment provided: An order was placed for continuous cardiac monitoring. The monitor shows a rate of 60-100 with a sinus rhythm per my interpretation. Heparin with bolus On reassessment the patient felt better. Diagnostics interpreted by me: The labs Independently Interpreted by myself revealed stable H&H, no worrisome leukocytosis Imaging studies: Imaging was reviewed and read by radiology Consultation: A consultation was placed with the hospitalist. The case was discussed and diagnostics were reviewed. The patient was evaluated in the ER for further treatment. This appears to be consistent with worsening DVT while on a DOAC. Case was discussed with medicine. We agreed to start the patient on heparin. Patient was reassessed and was stable. He is agreeable treatment plan of admission. He will be admitted to the medical service for failure of outpatient treatment for his DVT. By the evaluation outlined above emergent etiologies such as septic joint, trauma, infection, CHF, as well as others were deemed relatively unlikely. The pt informed about the findings as listed above. All questions were answered and pleased with the treatment. The chart was completed utilizing [employer] Speech voice recognition software. Grammatical errors, random word insertions, pronoun errors, and incomplete sentences are an occassional consequence of this system due to software limitations, ambient noise, and hardware issues. Any formal questions or concerns about the content, text, or information contained within the body of this dictation should be directly addressed to the physician assistant editor for clarification. Impression & Plan Deep vein thrombosis, lower right extremity, Failure of outpatient treatment Discharge Plan Visit Data Chief Complaint: Leg Injury/Pain Stated Complaint: REF BY DOC,R CALF SWOLLEN,?CLOT ED Provider: Cuate Sanderson ED Midlevel Provider: Maira Sherman Discharge Problem: Deep vein thrombosis, lower right extremity, Failure of outpatient treatment Patient Disposition: Admitted As Inpatient Condition: Good Discharge Instructions Interventions: ED Discharge Assessment Last Done: 10/31/24 01:45 Forms Stand Alone Forms: [employer] Prescriptions Prescriptions: No Action sildenafil 50 mg tablet 50 mg PO DAILY PRN (Reason: sexual activity) Qty: 14 4RF Rx Instructions: administer 30 minutes to 4 hours before activity omeprazole 40 mg capsule,delayed release(DR/EC) 40 mg PO DAILY Qty: 90 3RF semaglutide 14 mg tablet 14 mg PO DAILY 90 Days Qty: 90 4RF triamcinolone acetonide 0.1 % cream 1 applic topical BID PRN (Reason: itching) Qty: 80 1RF (DME) blood sugar diagnostic Strip See Rx Instructions .ROUTE .MEDSUPPLY Qty: 50 3RF Rx Instructions: Testing blood sugar two times daily glimepiride 4 mg tablet 4 mg PO QAM Qty: 90 3RF albuterol sulfate 90 mcg/actuation HFA aerosol inhaler 2 puff inhalation Q6H PRN (Reason: shortness of breath or wheezing) Qty: 18 3RF Eliquis 5 mg tablet 5 mg PO BID Qty: 60 2RF empagliflozin 25 mg tablet 25 mg PO DAILY Qty: 90 1RF ezetimibe 10 mg tablet 10 mg PO DAILY Qty: 90 2RF metformin 1,000 mg tablet 500 mg PO BID lisinopril 20 mg tablet 20 mg PO DAILY Qty: 90 2RF amlodipine 2.5 mg tablet 2.5 mg PO HS Qty: 90 2RF ondansetron 4 mg tablet,disintegrating 4 mg PO Q6H PRN (Reason: nausea and vomiting) Qty: 10 0RF Referrals Referrals: Jeff Lindsey CRNP [Primary Care Provider] - Discharge Problem: Deep vein thrombosis, lower right extremity Qualifiers: Affected thrombotic vein of extremity: unspecified vein of extremity C hronicity: acute Qualified Code(s): I82.401 - Acute embolism and thrombosis of unspecified deep veins of right lower extremity
--- NOTE | 2024-10-31 01:25 | Ultrasound Report ---
Exam(s): US VENOUS RIGHT LOWER EXTREMITY EXAM: US Duplex Right Lower Extremity Veins CLINICAL HISTORY: Reason for exam: swelling. TECHNIQUE: Real-time duplex ultrasound scan of the right lower extremity veins integrating B-mode two-dimensional vascular structure, Doppler spectral analysis, color flow Doppler imaging and compression. COMPARISON: 09/28/24 FINDINGS: Deep veins: Duplicated popliteal veins with persistent nonocclusive DVT in 1 of the popliteal veins. No DVT in the visualized common femoral, femoral, or proximal deep femoral veins. Superficial veins: Unremarkable. No thrombus in the visualized great saphenous vein. Soft tissues: No acute findings. IMPRESSION: Duplicated popliteal veins with persistent nonocclusive DVT in 1 of the popliteal veins. This could represent chronic or acute on chronic DVT. Correlate clinically. Electronically signed by: Efra Contreras M.D. 10/31/24 01:24 AM
--- NOTE | 2024-10-31 01:31 | CT Scan Report ---
Exam(s): CTA CHEST IV Amt: 119 cc opti 320 EXAM: CT Angiography Chest With Intravenous Contrast CLINICAL HISTORY: Reason for exam: PE. TECHNIQUE: Axial computed tomographic angiography images of the chest with intravenous contrast. CTDI is 24.79 mGy and DLP is 860.71 mGy-cm. Automated exposure control was utilized for the study. A dose lowering technique was utilized adhering to the principles of ALARA. MIP reconstructed images were created and reviewed. COMPARISON: 09/28/24 FINDINGS: Pulmonary arteries: Unremarkable. No evidence of acute pulmonary embolism. Aorta: No acute findings. No aortic aneurysm or dissection. Lungs: No consolidation or mass. Stable 4 mm juxta-pleural right lower lobe pulmonary nodule (3-42); per Fleischner Society guidelines, no follow-up indicated. Pleural space: Unremarkable. No significant effusion. No pneumothorax. Heart: Mild coronary artery atherosclerosis involving the left anterior descending coronary artery. No cardiomegaly or pericardial effusion. Bones/joints: No acute fracture. No dislocation. Soft tissues: Unremarkable. Lymph nodes: Unremarkable. No enlarged lymph nodes. IMPRESSION: No evidence of acute pulmonary embolism. Electronically signed by: Efra Contreras M.D. 10/31/24 01:30 AM
[2024-10-31] MEDS ORDERED: GLUCOSE 40% GEL 15 GM TUBE PO PRN (02:09)
[2024-10-31] MEDS ORDERED: DOCUSATE SODIUM 100 MG CAP PO PRN (02:09)
[2024-10-31] MEDS ORDERED: ACETAMINOPHEN 325 MG TAB PO PRN (02:09)
[2024-10-31] MEDS ORDERED: MELATONIN 3 MG TAB PO PRN (02:09)
[2024-10-31] MEDS ORDERED: ALBUTEROL HFA 8 GM INHALER INH PRN (02:09)
[2024-10-31] MEDS ORDERED: DEXTROSE 50% 50 ML SYRINGE IV PRN (02:09)
[2024-10-31] MEDS ORDERED: GLUCAGON FOR INJ 1 MG VIAL SQ PRN (02:09)
[2024-10-31] MEDS ORDERED: GLUCOSE 10 TAB/TUBE PO PRN (02:09)
[2024-10-31] MEDS ORDERED: CARBOHYDRATES FOR HYPOGLYCEMIA PO PRN (02:09)
[2024-10-31 06:00] LABS: Basophils # (auto) 0.03 K/uL (0.00-0.20); Basophils % (auto) 0.4 %; Eosinophils # (auto) 0.13 K/uL (0.00-0.50); Eosinophils % (auto) 1.8 %; Hematocrit (blood only) 40.5 % (42.0-52.0); Immature Granulocytes # (auto) 0.03 K/uL (0.01-0.20); Immature Granulocytes % (auto) 0.4 %; Lymphocytes # (auto) 2.61 K/uL (1.20-3.40); Lymphocytes % (auto) 35.6 %; Mean Corpuscular Hemoglobin 29.7 pg (25.0-34.0); Mean Corpuscular Hgb Conc 34.6 g/dL (32.0-36.0); Mean Corpuscular Volume 85.8 fL (80.0-100.0); Mean Platelet Volume 9.4 fL (9.4-12.4); Monocytes # (auto) 0.56 K/uL (0.11-0.59); Monocytes % (auto) 7.6 %; Neutrophils # (auto) 3.97 K/uL (1.40-6.50); Neutrophils % (auto) 54.2 %; Platelet Count 226 K/uL (130-400); RDW Standard Deviation 40.3 fL (36.4-46.3); Red Blood Count 4.72 M/uL (4.70-6.10); White Blood Count 7.33 K/ul (4.8-10.8)
[2024-10-31 06:12] LABS: BUN Creatinine Ratio 21.8 (10-20); Creatinine Clr Calc Pharmacy 120.4 ml/min
[2024-10-31 08:07] VITALS: RESP 18
[2024-10-31] MEDS: INSULIN ASPART PER UNIT CHARGE SC SCH (08:32)
[2024-10-31] MEDS: lisinopril 20 MG TAB PO SCH (08:44)
[2024-10-31] MEDS: EZETIMIBE 10 MG TAB PO SCH (08:44)
[2024-10-31] MEDS: PANTOprazole 40 MG TAB PO SCH (08:44)
[2024-10-31] MEDS: LANTUS PER UNIT CHARGE SQ SCH (08:44)
--- NOTE | 2024-10-31 09:16 | Electrocardiogram Report ---
Test Reason : Blood Pressure : */* mmHG Vent. Rate : 60 BPM Atrial Rate : 60 BPM P-R Int : 192 ms QRS Dur : 90 ms QT Int : 392 ms P-R-T Axes : 55 -2 25 degrees QTcB Int : 392 ms Normal sinus rhythm Minimal voltage criteria for LVH, may be normal variant Borderline ECG When compared with ECG of 29-Sep-2024 21:02, No significant change was found Confirmed by Zhou Kelley ([id number]) on 10/31/2024 9:15:59 AM Referred By: Jeff Lindsey Confirmed By: Zhou Kelley
[2024-10-31 09:38] LABS: ANTI-Xa, UFH(UnfractionatedHep 1.11 IU/ml (0.3-0.7)
[2024-10-31] MEDS: STOP HEPARIN DRIP ORDER ONE (10:35)
[2024-10-31] MEDS: APIXABAN 5 MG TABLET PO SCH (11:49)
--- NOTE | 2024-10-31 19:53 | Magnetic Resonance Report ---
EXAM: MR lumbar spine wo con CLINICAL HISTORY: Pt c/o rt sided sciatica. TECHNIQUE: MRI of the lumbar spine was performed without the administration of intravenous contrast. Sequences obtained include sagittal T1-weighted, T2-weighted, STIR (Short Tau Inversion Recovery), and axial T2-weighted sequences. COMPARISON: none FINDINGS: Vertebral Alignment: Normal alignment of the lumbar spine without evidence of fracture. Loss of lumbar curvature denoting muscle spasm. No evidence of scoliosis is observed. Vertebral Bodies and Intervertebral Discs: Spondylodegnerative changes in the form of endplate osteophytosis and multilevel decreased disc height and bright T2 signal of scanned discs. No lytic or sclerotic lesions. Modic type 2 endplate changes at L4-L5 apposed endplates. Cauuc-fq-kctzf analysis: T12-L1: There is no significant disc pathology. No spinal canal stenosis. No neural foraminal stenosis. No ligamentum flavum hypertrophy and facet joint arthropathy. L1-L2: There is no significant disc pathology. Bilateral ligamentum flavum hypertrophy. L2-L3: There is a diffuse disc bulge with bilateral posterolateral foraminal protrusion measuring 5.1 mm in the right side and 4.6 mm on the left side. It is seen compressing both neural elements in their recesses with marked foraminal stenosis more on the left side. No spinal canal stenosis. Bilateral ligamentum flavum hypertrophy. L3-L4: There is a diffuse disc bulge measuring 4.5 mm with caudal migration, central and right paracentral protrusion compressing the anterior aspect of thecal sac, impinging over both neural elements in their recesses and foramina causing moderate canal stenosis and marked foraminal stenosis more on the right side. Bilateral liagmuntum flavum hypertrophy. L4-L5: There is diffuse disc bulge measuring 6.5 mm with caudal migration, high-intensity zone is noted denoting annular tear. It is seen compressing the anterior aspect of thecal sac markedly encroaching upon neural recesses and foramina more on the right side causing moderate spinal canal stenosis. and marked foraminal stenosis. Bilateral facet joint arthropathy and ligamentum flavum hypertrophy added more to spinal canal stenosis L5-S1: There is a disc bulge with a small central protrusion measuring 4 mm , indenting the anterior aspect of thecal sac milldy encroaching upon neural recesses and foramina causing no spinal canal stenosis and mild foraminal stenosis. Bilateral facet joint arthropathy. Spinal Cord and Nerve Roots: Conus medullaris terminates at the L1 level without abnormality. Nerve roots appear unremarkable bilaterally. The lower thoracic spinal cord, conus medullaris, and cauda equina nerve roots are unremarkable. Soft Tissues: Paraspinal soft tissues appear normal without evidence of abnormal signal intensity or mass lesions. IMPRESSION: 1. Spondylodgerative changes with multilevel disc lesions more predominant at L3/L4 and L4/5 causing central and foraminal canal stenosis as detailed above. 2. Suggest clinical correlation. Electronically signed by Bart Pacheco 10-31-2024 7:53 PM
--- NOTE | 2024-10-31 19:59 | Hospitalist Progress Note ---
Date of Service October 31, 2024 Assessment & Plan (1) Deep vein thrombosis, lower right extremity: Plan: initial dx of RLE popliteal vein DVT in 09/2024 Rx - Eliquis since that time repeat doppler yesterday with similar appearing DVT in the same vein there are NO new DVTs in other deep veins and no propagation/extension of the original popliteal vein DVT films were reviewed by Dr Barrera, [facility] patient has an appt with Dr Barrera on 12/23/24 since the doppler is unchanged from last month this is not a DOAC failure thus, stop heparin drip resume Eliquis 5mg BID with respect to edema of the right leg suspect it is likely due to #2 below com pounded by his RLE DVT of note - prior homocysteine level was minimally elevated at 12.5; repeat level pending previous anti-phospholipid ab's were negative previous Lupus anticoagulant was negative protein C, protein S, factor 5 Leiden, prothrombin gene mutation - all dispatched by admitting team (2) Chronic venous insufficiency: Plan: patient's exam findings are c/w chronic venous insufficiency (venous stasis skin changes, intermittent edema, etc) he has varicosities on exam particularly the left leg venous reflux is suspected he would benefit from compression will send to Dr Zhou Rizzo with [facility] for custom fit compression stockings could also have vein studies at that time (3) Carotid artery thrombosis: Plan: <50% left ICA narrowing on imaging 09/2024 will repeat a carotid duplex study really should be on statin therapy cont Eliquis has appt with Dr Barrera in early December 2024 (4) Diabetes mellitus, type 2: Plan: a1c 7.8% in 08/2024 cont (5) Lumbar back pain with radiculopathy affecting right lower extremity: Plan: suspect his RLE pain is due to radiculopathy from L-spine DJD will obtain MRI l-spine before d/c home in meantime - start gabapentin 100mg BID consider course of steroids depending on MRI findings fortunately he has not motor deficits on exam (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: Plan: as above Plan can d/c home after MRI l-spine & carotid duplex study have been completed updated at bedside case discussed with Dr Barrera via [place] [facility] Admission and Anticipated Discharge Date Admission Date: October 30, 2024 Subjective patient w/o complaints except right leg pain most of the pain is the lateral right "hip" region but he denies right groin pain the pain at times radiates down the leg below the right knee he does have associated numbness/tingling the pain reminds him of when he had a lumbar herniated disc years ago the pain is mild-moderate he is able to ambulate denies any RLE weakness edema of RLE has improved already updated at bedside today discussed with pt/pt's that I corresponded with Dr Jarret Barrera from vascular surgery her personally reviewed his RLE doppler from September and compared it to yesterday's images the RLE DVT is UNCHANGED and is chronic; there is no new DVT, no extension/propagation of the prior DVT, etc. thus, he did not experience an Eliquis failure further he is set up to see Dr Barrera on December 23 Review of Systems Review of Systems: CV - no chest pain pulm - no dyspnea GI - no abd pain Physical Exam Physical Exam: gen - NAD, looks well neck - no JVD heart - RRR, s1 s2, no murmur lungs - CTA b/l abd - soft NT ND BS+ ext - venous stasis changes b/l shins, worse RLE; pulses 2+ b/l feet; no peripheral edema; no warmth or cords, etc RLE musculo - right hip - logrolling of the RLE leads to no hip pain; no tenderness over the right greater trochanter; full ROM (passive) of both hips without any pain negative straight leg test RLE and LLE neuro - sensation intact all dermatomes RLE, DTRs 1+ b/l patellar, 0 achiles b/l; strength all muscle groups 5/5 b/l LEs psych - a/o x 3 vascular - varicosities LLE>RLE Results & Data Results & Data Vital Signs (Past 12 Hours) Vital Signs Temp Pulse Pulse Resp BP BP Pulse Ox 10/31/24 16:30 36.6 C 61 18 119/74 95 10/31/24 13:28 68 10/31/24 11:34 36.5 C 71 18 122/73 96 10/31/24 08:06 36.5 C 69 18 123/75 97 O2 Del Method 10/31/24 16:30 Room Air 10/31/24 13:28 10/31/24 11:34 Room Air 10/31/24 08:06 Room Air Laboratory Results Laboratory Results - last 24 hr 10/31/24 10/31/24 10/31/24 05:23 08:16 08:54 WBC 7.33 RBC 4.72 Hgb 14.0 Hct 40.5 L MCV 85.8 MCH 29.7 MCHC 34.6 RDW Std Deviation 40.3 RDW Coeff of Jacinto 13.0 Plt Count 226 MPV 9.4 Immature Gran % (Auto) 0.4 Neut % (Auto) 54.2 Lymph % (Auto) 35.6 Traill % (Auto) 7.6 Eos % (Auto) 1.8 Baso % (Auto) 0.4 Neut # (Auto) 3.97 Lymph # (Auto) 2.61 Traill # (Auto) 0.56 Eos # (Auto) 0.13 Baso # (Auto) 0.03 Immature Gran # (Auto) 0.03 Heparin Anti-Xa, Unfract 1.11 H* Sodium 139 Potassium 4.0 Chloride 107 Carbon Dioxide 26 Anion Gap 6 BUN 17 Creatinine 0.78 Est Cr Clr Drug Dosing 120.4 eGFR 102.09 BUN/Creatinine Ratio 21.8 H Glucose 105 H POC Glucose 106 H Calcium 9.0 10/31/24 10/31/24 10/31/24 11:59 17:00 20:12 WBC RBC Hgb Hct MCV MCH MCHC RDW Std Deviation RDW Coeff of Jacinto Plt Count MPV Immature Gran % (Auto) Neut % (Auto) Lymph % (Auto) Traill % (Auto) Eos % (Auto) Baso % (Auto) Neut # (Auto) Lymph # (Auto) Traill # (Auto) Eos # (Auto) Baso # (Auto) Immature Gran # (Auto) Heparin Anti-Xa, Unfract Sodium Potassium Chloride Carbon Dioxide Anion Gap BUN Creatinine Est Cr Clr Drug Dosing eGFR BUN/Creatinine Ratio Glucose POC Glucose 143 H 94 138 H Calcium PG Care Time/CCT Total # of Minutes Spent Total Time Spent with Patient: Total time spent is greater than 50% in coordination of care (as documented) at patient's floor/unit and/or counseling patient: Coding Level of Care Code 78411 SUB INP/OBS CARE 3/50MIN Diagnoses Deep vein thrombosis, lower right extremity I82.401 Affected thrombotic vein of extremity: unspecified vein of extremity Chronicity: acute Chronic venous insufficiency I87.2 Carotid artery thrombosis I65.22 Laterality: left Diabetes mellitus, type 2 E11.9 Lumbar back pain with radiculopathy affecting right lower extremity M54.16 Degenerative joint disease (DJD) of lumbar spine M47.816 (1) Deep vein thrombosis, lower right extremity Affected thrombotic vein of extremity: unspecified vein of extremity Chronicity: acute Qualified Code(s): I82.401 - Acute embolism and thrombosis of unspecified deep veins of right lower extremity (3) Carotid artery thrombosis Laterality: left Qualified Code(s): I65.22 - Occlusion and stenosis of left carotid artery
--- NOTE | 2024-10-31 20:15 | Ultrasound Report ---
DUPLEX ULTRASOUND EXAMINATION OF THE CAROTID ARTERIES. COMPARISON: none . HISTORY / INDICATIONS: Follow-up to CTA TECHNIQUE: Bilateral common carotid arteries, extracranial internal and external carotid arteries are evaluated with nick-scale imaging, color Doppler, and spectral analysis according to a standard protocol. ICA-CCA ratios are calculated with claim service representative peak-systolic velocities and recorded. Vertebral arteries are evaluated in one segment to evaluate for patency and character of flow. Comparison with previous evaluation is performed when available. Unless otherwise specified, all velocities are measured in cm/sec. Carotid stenosis is reported according to validated velocity parameters, similar to NASCET criteria. FINDINGS: Right Carotid: . Velocity measurements as follows: Internal Carotid Artery 84 cm/sec. ICA to CCA ratio: 0.75 . Left Carotid: .Velocity measurements as follows: Internal Carotid Artery 143 cm/sec. ICA to CCA ratio: 1.5. Antegrade flow was seen in both vertebral arteries. Elevated velocity also of the left ECA with PSV of 187 cm/sec. Turbulent flow is seen in the left ICA. Mild calcified plaque at the right carotid bulb. Moderate mixed calcified and noncalcified plaque at the left carotid bulb. IMPRESSION: 1. No detectable hemodynamically significant stenosis of the right ICA. 2. 50-69 % stenosis of the left ICA. 3. Vertebral arteries are patent and demonstrate antegrade flow. Sonographic NASCET Index This study proposed incorporating distal ICA flow velocity information on the conventional carotid Doppler study improving the diagnostic accuracy of PSV . <15% stenosis -deceleration spectral broadening with a peak systolic velocity (PSV) <125 cm/s 16-49% stenosis -pansystolic spectral broadening with a PSV <125 cm/s 50-69% stenosis -pansystolic spectral broadening with a PSV of >125 cm/s and -end-diastolic velocity (EDV) <110 cm/s or ICA/CCA PSV ratio >2 but <4 70-79% stenosis -pansystolic spectral broadening with PSV >270 cm/s or EDV >110 cm/s or ICA/CCA PSV ratio >4 80-99% stenosis: EDV >140 cm/s complete occlusion: no flow; terminal thump Electronically signed by Zhou Epperson 10-31-2024 8:14 PM
[2024-10-31] MEDS: GABAPENTIN 100 MG CAP PO SCH (20:17)
[2024-10-31] MEDS: amLODIPine BESYLATE 5 MG TAB PO SCH (20:17)
[2024-11-01 07:11] VITALS: PULSE 68
[2024-11-01 07:30] LABS: BUN Creatinine Ratio 26.4 (10-20); Calcium 9.2 mg/dl (8.6-10.3); Creatinine Clr Calc Pharmacy 103.2 ml/min; Potassium 4.1 mmol/L (3.5-5.1)
[2024-11-01 07:38] VITALS: TEMP 97.3; O2SAT 98
[2024-11-01 09:56] VITALS: BP 102/62
--- NOTE | 2024-11-01 10:03 | Discharge Summary ---
Discharge Summary Date of Service November 01, 2024 Principal Dx & Hospital Course #1 = Principal Diagnosis (1) Deep vein thrombosis, lower right extremity: initial dx of RLE popliteal vein DVT in 09/2024 Rx - Eliquis since that time repeat doppler yesterday with similar appearing DVT in the same vein there are NO new DVTs in other deep veins and no propagation/extension of the original popliteal vein DVT films were reviewed by Dr Barrera, [facility] patient has an appt with Dr Barrera on 12/23/24 since the doppler is unchanged from last month this is not a DOAC failure thus, stop heparin drip resume Eliquis 5mg BID with respect to edema of the right leg suspect it is likely due to #2 below compounded by his RLE DVT of note - prior homocysteine level was minimally elevated at 12.5; repeat level pending previous anti-phospholipid ab's were negative previous Lupus anticoagulant was negative protein C, protein S, factor 5 Leiden, prothrombin gene mutation - all dispatched by admitting team (2) Chronic venous insufficiency: patient's exam findings are c/w chronic venous insufficiency (venous stasis skin changes, intermittent edema, etc) he has varicosities on exam particularly the left leg venous reflux is suspected he would benefit from compression will send to Dr Zhou Rizzo with [facility] for custom fit compression stockings could also have vein studies at that time (3) Carotid artery thrombosis: <50% left ICA narrowing on imaging 09/2024 will repeat a carotid duplex study really should be on statin therapy cont Eliquis has appt with Dr Barrera in early December 2024 (4) Diabetes mellitus, type 2: a1c 7.8% in 08/2024 cont (5) Lumbar back pain with radiculopathy affecting right lower extremity: suspect his RLE pain is due to radiculopathy from L-spine DJD will obtain MRI l-spine before d/c home in meantime - start gabapentin 100mg BID consider course of steroids depending on MRI findings fortunately he has not motor deficits on exam (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: as above Plan can d/c home after MRI l-spine & carotid duplex study have been completed updated at bedside case discussed with Dr Barrera via [employer] [facility] Admission HPI Per Admitting Provider Hai is a 59-year-old male with a past medical history of DVT in September 2024 on Eliquis, carotid artery thrombosis, hypertension, DM, hyperlipidemia, GERD. He presents today due to worsening leg swelling and pain despite being compliant on Eliquis. He is being admitted for recurrence of DVT failing outpatient therapy; being started on heparin on admission and hematology consult placed. Patient seen at bedside. He stated 1 to 2 weeks ago he began with right foot swelling that has progressed up his leg. He also noticed varicose veins of his right foot. He did not have leg swelling with the original DVT. He also stated he has difficulty with moving his foot. He has pain of his right leg. He stated he has been compliant on Eliquis taking it twice a day. He also endorses numbness of his right foot however chronic and also on the left foot, suspect neuropathy from diabetes. He endorses dyspnea on exertion, however chronic and unchanged. 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 He has tried wearing teds to help with the swelling but finds they are hard to put on. His original DVT was provoked from an injury, he stated he twisted his ankle. He has had headaches again and having sinus issues, he has an appointment with ENT in November. He was to have a Holter monitor put on next Saturday. He has not yet set up an appointment with vascular. Patient denies chest pain, abdominal pain, nausea, vomiting, diarrhea. Does not use nicotine products or drink alcohol. He denies past history of cancer. He does not use oxygen at baseline. He did not take his evening medications yet. He wishes to be full code at this time. He denies past history of known hypercoagulable conditions. He denies familial history of this as well. Discharge Exam gen - NAD, looks well neck - no JVD heart - RRR, s1 s2, no murmur lungs - CTA b/l abd - soft NT ND BS+ ext - venous stasis changes b/l shins, worse RLE; pulses 2+ b/l feet; no peripheral edema; no warmth or cords, etc RLE musculo - right hip - logrolling of the RLE leads to no hip pain; no tenderness over the right greater trochanter; full ROM (passive) of both hips without any pain negative straight leg test RLE and LLE neuro - sensation intact all dermatomes RLE, DTRs 1+ b/l patellar, 0 achiles b/l; strength all muscle groups 5/5 b/l LEs psych - a/o x 3 vascular - varicosities LLE>RLE Discharge Plan Discharge Items Patient Disposition: Home - Self-Care Reason For Visit: Right leg edema, right leg pain Discharge Diagnosis: 1. right leg edema - likely due to venous insufficiency 2. right leg DVT - stable, no new DVT or worsening of prior DVT 3. right leg pain - due to moderate-severe lumbar spine degenerative joint disease at L4-L5 4. carotid stenosis on left Condition on Discharge: Good Activity: Resume your previous activity Non-emergency contact: Primary Care Provider, Specialist and Radio Installer Call non-emergency contact if: you have any medication questions Follow-up/Referrals: Jeff Lindsey CRNP [Primary Care Provider] - (1 week) Zhou Rizzo MD [Physician] - (Dr Rizzo and his office can custom fit you for compression stockings; he can also do vein studies if needed on your legs ) Robert Barrera MD [Physician] - 12/23/24 9:00 am (vascular surgery - check of carotid arteries) Diet: Carb Consistent or DM2 Addtl Attending Provider Instructions: Mr Evans, You were hospitalized due to recent edema of your right leg as well as right leg pains. The edema was likely due to venous insufficiency. Venous insufficiency often occurs as result of varicose veins, prior DVT blood clots, etc. It is best treated with compression stockings. I am going to refer you to Dr Zhou Rizzo, [facility]. He can fit you for custom compression stockings. He can also do vein studies on your legs and can offer treatment to help prevent swelling, etc. It is likely you will have intermittent swelling, especially in your right leg, as time goes on. Your doppler ultrasound of your right leg shows the original blood clot that was seen in 09/2024. However, NO NEW DVT was seen in any other vein, and the original clot has NOT gotten any larger. Thus, you can continue with your Eliquis blood thinner as previous. Further, your CT scan of the lungs did NOT show pulmonary emboli blood clots. Your right leg pains are likely due to fairly advanced degenerative joint disease of the lumbar spine. You have multiple levels of degeneration but particularly at L4-L5. The right leg pain is likely "radicular" pain which is coming from the spine. The degeneration & arthritis causes nerve impingement which then causes nerve pain in the leg. Finally, we performed a carotid ultrasound of the carotid arteries. The right carotid artery continues to be normal. The left carotid artery has a narrowing (estimated) at 50-69%. This is just an estimate; the ultrasound is a different type of study than the CT scan you had back in September. I was in touch multiple times with the vascular surgeon, Dr Jarret Barrera, and he recommends follow-up with him in December as scheduled. Recommendations - 1. for back pain/leg pain - * gabapentin 100mg twice daily; this is to help with the nerve pain in the right leg * common side effects include mild sedation - especially the first few days you are on the medicine * rarely it can cause mild swelling in your ankles but this is uncommon * hydrocodone/acetaminophen - 1 tablet every 6 hours as needed for pain * this is a narcotic pain killer medicine; do NOT drive a car or operate heavy machinery if you take this medicine * do not drink alcohol with this medicine * this medicine can make you sleepy * it can also cause constipation * note that this medicine contains tylenol (acetaminophen); thus, if you have to take this medicine, do not take extra tylenol at the same time 2. consider physical therapy for your back; talk to Mr Lindsey about such and ask for a referral if interested. 3. do not take nqru-rzu-ftwhtac motrin/ibuprofen/naprosyn/aleve/aspirin for back pain/leg pain. 4. strongly consider a "statin" drug for your carotid stenosis. Stenosis oc curs as a result of atherosclerosis ("hardening of the arteries") as well as other factors. Common statin drugs include lipitor, zocor, crestor, etc. See handout on cholesterol. 5. continue your Eliquis 5mg twice daily as previous. 6. consider using a heating pad, if desired, for your back. Follow-up - see separate section Return to [facility] if - * you have worsening back pain or right leg pain * you have worsening shortness of breath * you have chest pains * you have difficulty walking because of your right leg issues * you have bleeding from any location * any other concerns It was our pleasure to care for you! Pending Studies at Discharge: Yes Studies:: clotting blood work Stand-Alone Forms: [facility], Work/School Release, Smoking Cessation Medications and DC Order Prescriptions: New gabapentin 100 mg capsule 100 mg PO BID Qty: 30 0RF Rx Instructions: for right leg nerve pain hydrocodone-acetaminophen 5-325 mg tablet 1 tab PO Q6H PRN (Reason: pain) Qty: 10 0RF Continued sildenafil 50 mg tablet 50 mg PO DAILY PRN (Reason: sexual activity) Qty: 14 4RF Rx Instructions: administer 30 minutes to 4 hours before activity omeprazole 40 mg capsule,delayed release(DR/EC) 40 mg PO DAILY Qty: 90 3RF semaglutide 14 mg tablet 14 mg PO DAILY 90 Days Qty: 90 4RF triamcinolone acetonide 0.1 % cream 1 applic topical BID PRN (Reason: itching) Qty: 80 1RF (DME) blood sugar diagnostic Strip See Rx Instructions .ROUTE .MEDSUPPLY Qty: 50 3RF Rx Instructions: Testing blood sugar two times daily glimepiride 4 mg tablet 4 mg PO QAM Qty: 90 3RF albuterol sulfate 90 mcg/actuation HFA aerosol inhaler 2 puff inhalation Q6H PRN (Reason: shortness of breath or wheezing) Qty: 18 3RF Eliquis 5 mg tablet 5 mg PO BID Qty: 60 2RF empagliflozin 25 mg tablet 25 mg PO DAILY Qty: 90 1RF ezetimibe 10 mg tablet 10 mg PO DAILY Qty: 90 2RF metformin 1,000 mg tablet 500 mg PO BID lisinopril 20 mg tablet 20 mg PO DAILY Qty: 90 2RF amlodipine 2.5 mg tablet 2.5 mg PO HS Qty: 90 2RF ondansetron 4 mg tablet,disintegrating 4 mg PO Q6H PRN (Reason: nausea and vomiting) Qty: 10 0RF Discharge Orders: Discharge Order (Routine); Ordered 11/01/24 Ordered By: Rey Tanner/Other Patient Handouts: All About Cholesterol Control, Understanding Lumbar Radiculopathy, Carotid Artery Disease Admission Data Admit Date/Time: 10/30/24 23:33 Attending Provider: Rey Lovelace Admit Provider: Dax Hall Primary Care Provider: Jeff Lindsey Other Providers: Dax Hall Hospital Stay Data Consultations 10/30/24 22:39 ED Decision to Admit Stat Diagnostic Imagining Performed 10/30/24 19:46 US leg [US venous doppler LE RT] Stat 10/30/24 22:28 CT angio chest PE protocol Stat 10/31/24 12:43 MR lumbar spine wo con Routine 10/31/24 12:48 Carotid duplex [US carotid doppler BI] Routine Pending Results Patient Have Any Pending Studies at Discharge: Yes Discharge Instructions Given to Patient (Per Discharging Provider) Mr Evans, You were hospitalized due to recent edema of your right leg as well as right leg pains. The edema was likely due to venous insufficiency. Venous insufficiency often occurs as result of varicose veins, prior DVT blood clots, etc. It is best treated with compression stockings. I am going to refer you to Dr Zhou Rizzo, [facility]. He can fit you for custom compression stockings. He can also do vein studies on your legs and can offer treatment to help prevent swelling, etc. It is likely you will have intermittent swelling, especially in your right leg, as time goes on. Your doppler ultrasound of your right leg shows the original blood clot that was seen in 09/2024. However, NO NEW DVT was seen in any other vein, and the original clot has NOT gotten any larger. Thus, you can continue with your Eliquis blood thinner as previous. Further, your CT scan of the lungs did NOT show pulmonary emboli blood clots. Your right leg pains are likely due to fairly advanced degenerative joint disease of the lumbar spine. You have multiple levels of degeneration but particularly at L4-L5. The right leg pain is likely "radicular" pain which is coming from the spine. The degeneration & arthritis causes nerve impingement which then causes nerve pain in the leg. Finally, we performed a carotid ultrasound of the carotid arteries. The right carotid artery continues to be normal. The left carotid artery has a narrowing (estimated) at 50-69%. This is just an estimate; the ultrasound is a different type of study than the CT scan you had back in September. I was in touch multiple times with the vascular surgeon, Dr Jarret Barrera, and he recommends follow-up with him in December as scheduled. Recommendations - 1. for back pain/leg pain - * gabapentin 100mg twice daily; this is to help with the nerve pain in the right leg * common side effects include mild sedation - especially the first few days you are on the medicine * rarely it can cause mild swelling in your ankles but this is uncommon * hydrocodone/acetaminophen - 1 tablet every 6 hours as needed for pain * this is a narcotic pain killer medicine; do NOT drive a car or operate heavy machinery if you take this medicine * do not drink alcohol with this medicine * this medicine can make you sleepy * it can also cause constipation * note that this medicine contains tylenol (acetaminophen); thus, if you have to take this medicine, do not take extra tylenol at the same time 2. consider physical therapy for your back; talk to Mr Lindsey about such and ask for a referral if interested. 3. do not take aadx-zyt-kunafoc motrin/ibuprofen/naprosyn/aleve/aspirin for back pain/leg pain. 4. strongly consider a "statin" drug for your carotid stenosis. Stenosis occurs as a result of atherosclerosis ("hardening of the arteries") as well as other factors. Common statin drugs include lipitor, zocor, crestor, etc. See handout on cholesterol. 5. continue your Eliquis 5mg twice daily as previous. 6. consider using a heating pad, if desired, for your back. Follow-up - see separate section Return to [facility] if - * you have worsening back pain or right leg pain * you have worsening shortness of breath * you have chest pains * you have difficulty walking because of your right leg issues * you have bleeding from any location * any other concerns It was our pleasure to care for you! Coding Diagnoses Deep vein thrombosis, lower right extremity I82.401 Affected thrombotic vein of extremity: unspecified vein of extremity Chronicity: acute Chronic venous insufficiency I87.2 Carotid artery thrombosis I65.22 Laterality: left Diabetes mellitus, type 2 E11.9 Lumbar back pain with radiculopathy affecting right lower extremity M54.16 Degenerative joint disease (DJD) of lumbar spine M47.816
== END 2024-11-01 10:39 | disposition home or self-care (01) | DRG 301 ==
LOC: ED 19:28 → SUATTDRO 23:33 → 2N 23:33